=== PATIENT | female | born 1980 | race Caucasian/White ===

== ENCOUNTER 2016-05-15 11:04 | Outpatient (CLI) | payer MEDICAID ==
[2016-05-15 11:21] VITALS: BP 110/61; PULSE 110; RESP 18; TEMP 97.5
== END 2016-05-15 12:40 | disposition home or self-care (01) ==
LOC: FBPOP 11:04
PROVIDERS: ATTEND Obstetrics & Gynecology
DX: O62.2 Other uterine inertia (principal); Z3A.38 38 weeks gestation of pregnancy
CPT/HCPCS: 59025; 99213

== ENCOUNTER 2016-05-18 06:15 | Observation (INO) | payer MEDICAID ==
[2016-05-18] MEDS ORDERED: OXYTOCIN 10 UNIT/ML 1 ML VIAL IM PRN (06:57)
[2016-05-18] MEDS ORDERED: LIDOCAINE 1% (PF) 10 MG/ML (30 ML SDV) SQ PRN (06:57)
[2016-05-18] MEDS ORDERED: METHYLERGONOVINE 0.2 MG/ML 1 ML AMP IM PRN (06:57)
[2016-05-18] MEDS ORDERED: PENICILLIN G POTASSIUM 5,000,000 UNIT in DEXTROSE 5% IN WATER 100 ML IV STA ×2 (06:57)
[2016-05-18] MEDS ORDERED: TERBUTALINE 1 MG/ML VIAL SQ PRN (06:57)
[2016-05-18] MEDS ORDERED: CARBOPROST TROMETHAMINE 250 MCG/ML 1 ML AMP IM PRN (06:57)
[2016-05-18] MEDS ORDERED: LACTATED RINGERS 1,000 ML IV SCH (07:00)
[2016-05-18] MEDS ORDERED: OXYTOCIN 30 UNITS/500 ML NS 30 UNIT in SALINE 1 500ML.BAG IV SCH (07:00)
[2016-05-18 07:08] LABS: Basophils # (A) 0.1 k/uL (0-0.2); Basophils % (A) 1 %; CH 27.5; CHCM 34.1; Eosinophils # (A) 0.2 k/uL (0-0.7); Eosinophils % (A) 2 %; HCT 31.8 % (34.0-46.0); HDW 3.63; HGB 10.8 gm/dL (11.4-16.0); Luc % (Auto) 2; Lymphocytes # (A) 1.7 k/uL (1.0-4.8); Lymphocytes % (A) 17 %; MCH 27.7 pg (25.0-35.0); MCHC 34.1 g/dL (31.0-37.0); MCV 81.2 fL (80.0-100.0); Mean Platelet Volume 6.7; Monocytes # (A) 0.4 k/uL (0-1.0); Monocytes % (A) 4 %; Neutrophils # (A) 7.5 k/uL (1.3-7.7); Neutrophils % (A) 75 %; Poikilocytosis Slight; RBC 3.91 m/uL (3.80-5.40); RDW 15.3 % (11.5-15.5); WBC (Perox) 10.17
[2016-05-18 07:28] VITALS: BP 129/63; PULSE 110; RESP 18; TEMP 96.2; BMI 47.9
[2016-05-18] MEDS ORDERED: BUTORPHANOL 1 MG/ML 1 ML VIAL IV PRN (08:13)
--- NOTE | 2016-05-18 08:22 | P.HPOB ---
History of Present Illness H&P Date: 05/18/16 Chief Complaint: 39-2/7 weeks, elective induction The patient is a 36-year-old 4 para 2012 admitted at 39-2/7 weeks as established by an 18 week ultrasound. She is admitted for elective induction of labor with a history of macrosomic infants and a BMI of greater than 50. This infant is thought also to be macrosomic based upon the most recent ultrasound. She does fall into the category of advanced maternal age and declined testing. Her has otherwise been uncomplicated though she is group B strep positive and requires treatment in labor. Check of her cervix this morning demonstrates her cervix to be 3 cm dilated, 40% effaced, the vertex in presentation but extraordinarily high at this point. Confirmation of presentation was made with bedside ultrasound. Obstetrical history 4 para 2012 with 2 previous term vaginal deliveries of infants in the 9 pound range. Current statistics are listed in history of present illness. EDC of 05/23/2016 was established by an 18 week ultrasound. Laboratory workup demonstrates a blood type of O+ with a positive antibody that was too weak to identify. Rubella status is immune. The remainder of the laboratory work was within normal limits. Early Glucola was within normal limits well second trimester Glucola was elevated and followed by a normal three-hour glucose tolerance test. Group B strep status is positive. Gynecologic history is unremarkable with no history of any infections to include STDs. Review of Systems Review of systems is confined to history of present illness. Past Medical History Past Medical History: GERD/Reflux Additional Past Medical History / Comment(s): Hiatal hernia History of Any Multi-Drug Resistant Organisms: None Reported Past Surgical History: No Surgical Hx Reported Past Anesthesia/Blood Transfusion Reactions: No Reported Reaction Past Psychological History: No Psychological Hx Reported Smoking Status: Never smoker Past Alcohol Use History: None Reported Past Drug Use History: None Reported - Past Family History Mother Family Medical History: No Reported History Medications and Allergies Home Medications Medication Instructions Recorded Confirmed Type Pnv with Ca,No.72/Iron/FA 1 tab PO DAILY 04/09/16 05/15/16 History [ Plus Tablet] Allergies Allergy/AdvReac Type Severity Reaction Status Date / Time No Known Allergies Allergy Verified 05/18/16 06:55 Exam - Vital Signs Vital signs: Vital Signs Temp Pulse Resp BP Pulse Ox 05/18/16 07:23 96.2 F L 110 H 18 129/63 98 Intake and Output 05/17/16 05/18/16 05/18/16 22:59 06:59 14:59 Other: Weight 142.882 kg 142.882 kg Patient Weight 05/19/16 06:59 Weight 142.882 kg In general, this is a morbidly obese white female in no acute distress. Her heart has a regular rhythm and rate without murmur. Her lungs are clear to auscultation bilaterally in all skinner. Her abdomen is gravid, nondistended, has normal active bowel sounds, is soft, nontender, and without any palpable masses aside from uterine fundus. Her extremities are without any cyanosis, clubbing, or significant edema and are nontender to palpation bilaterally. Digital cervical examination inserted to surgery 3 cm dilated, 40% effaced, the vertex in presentation at -3-4 station. Amniotic membranes were left intact at this time. Results Result Diagrams: 05/18/16 07:00 Abnormal Lab Results - Last 24 Hours (Table) 05/18/16 Range/Units 07:00 Hgb 10.8 L (11.4-16.0) gm/dL Hct 31.8 L (34.0-46.0) % Assessment and Plan (1) Term Status: Acute (2) macrosomia Status: Acute (3) Advanced maternal age (AMA) in Status: Acute (4) Group B streptococcal infection during Status: Acute Plan: The patient is admitted for elective induction of labor. As her presenting part is very high in the pelvis, Pitocin augmentation will be started along with penicillin prophylaxis for group B strep. When the head is low enough to safely effect artificial rupture of membranes, this will be carried out. She will continue to have close maternal and surveillance and expectant management will be practiced. She is a good candidate for either IV or epidural analgesia, whichever she may choose.
[2016-05-18] MEDS ORDERED: PENICILLIN G POTASSIUM 2,500,000 UNIT in DEXTROSE 5% IN WATER 100 ML IV SCH ×2 (11:00)
--- NOTE | 2016-05-26 10:55 | P.DS ---
Providers Date of admission: 05/18/16 06:41 Expected date of discharge: 05/18/16 Attending physician: Ramiro Veliz Primary care physician: Stated None - Discharge Diagnosis(es) (1) Term Status: Acute (2) macrosomia Status: Acute (3) Advanced maternal age (AMA) in Status: Acute (4) Group B streptococcal infection during Status: Acute Hospital Course: The patient is a 36-year-old 4 para 2011 admitted at 39-2/7 weeks by good dating parameters perches admitted for elective induction of labor with a history of previous macrosomic infants and maternal morbid obesity. This infant was also thought to be macrosomic based upon both Jett maneuvers and the ultrasound. She additionally [place] the category of advanced maternal age and declined testing. She is also known to be group B strep positive. She was admitted and had Pitocin augmentation started as well as antibody prophylaxis for group B strep. Cervical examination demonstrated her cervix to be approximately 37 m dilated and 40-50% effaced but the presenting part was not palpable in the pelvis. Bedside ultrasound confirms vertex presentation but the station was too high to safely carry out artificial rupture. As result she had Pitocin augmentation continued through the morning and early afternoon with no significant change in her cervix and no descent of the head. As result, and given that the induction was entirely elective, we had a discussion regarding options and agreed to call the induction process and discharge her to home. She was discharged home to follow-up in one week in the office for recheck and to call for any other problems she may encounter. She understood her instructions and agrees to follow up as noted above. Discharge medications included only continue vitamins. Procedures: #1. Pitocin augmentation #2. Antibiotic prophylaxis Patient Condition at Discharge: Good Plan - Discharge Summary Discharge Medication List Pnv with Ca,No.72/Iron/FA [ Plus Tablet] 1 tab PO DAILY 04/09/16 [ History] Ferrous Sulfate [Feosol] 1 tab PO DAILY 05/25/16 [History] Follow up Appointment(s)/Referral(s): Ramiro Veliz MD [STAFF PHYSICIAN] - 1 Week
== END 2016-05-18 14:40 ==
LOC: INTOOBSV 06:41 → 4FBP 06:41
PROVIDERS: ADMIT Obstetrics & Gynecology; ATTEND Obstetrics & Gynecology
DX: O75.89 Other specified complications of labor and delivery (principal); O09.523 Supervision of elderly multigravida, third trimester; O36.63X0 Maternal care for excessive fetal growth, third trimester, not applicable or unspecified; O98.813 Other maternal infectious and parasitic diseases complicating pregnancy, third trimester; O99.213 Obesity complicating pregnancy, third trimester; Z3A.39 39 weeks gestation of pregnancy; B95.1 Streptococcus, group B, as the cause of diseases classified elsewhere; E66.01 Morbid (severe) obesity due to excess calories
CPT/HCPCS: 85025; G0379; G0378; J2540; J0595; J2590; 96365; 96366; 96375

== ENCOUNTER 2016-05-25 06:30 | Inpatient (IN) | payer MEDICAID ==
[2016-05-25] MEDS ORDERED: CARBOPROST TROMETHAMINE 250 MCG/ML 1 ML AMP IM PRN (06:46)
[2016-05-25] MEDS ORDERED: TERBUTALINE 1 MG/ML VIAL SQ PRN (06:46)
[2016-05-25] MEDS ORDERED: METHYLERGONOVINE 0.2 MG/ML 1 ML AMP IM PRN (06:46)
[2016-05-25] MEDS ORDERED: OXYTOCIN 10 UNIT/ML 1 ML VIAL IM PRN (06:46)
[2016-05-25] MEDS ORDERED: PENICILLIN G POTASSIUM 5,000,000 UNIT in DEXTROSE 5% IN WATER 100 ML IV STA ×2 (06:46)
[2016-05-25] MEDS ORDERED: LIDOCAINE 1% (PF) 10 MG/ML (30 ML SDV) SQ PRN (06:46)
[2016-05-25] MEDS ORDERED: OXYTOCIN 30 UNITS/500 ML NS 30 UNIT in SALINE 1 500ML.BAG IV SCH (07:00)
[2016-05-25 07:01] VITALS: BMI 48.4
[2016-05-25] MEDS: LACTATED RINGERS 1,000 ML IV SCH ×5 (07:02→21:51)
[2016-05-25 07:14] LABS: Basophils % (A) 0 %; CH 27.5; CHCM 34.1; Eosinophils # (A) 0.3 k/uL (0-0.7); Eosinophils % (A) 3 %; HCT 30.9 % (34.0-46.0); HDW 3.59; HGB 10.4 gm/dL (11.4-16.0); Luc # (Auto) 0.13; Luc % (Auto) 2; Lymphocytes # (A) 1.5 k/uL (1.0-4.8); Lymphocytes % (A) 19 %; MCH 27.4 pg (25.0-35.0); MCHC 33.7 g/dL (31.0-37.0); MCV 81.2 fL (80.0-100.0); Monocytes # (A) 0.4 k/uL (0-1.0); Monocytes % (A) 5 %; Neutrophils # (A) 5.9 k/uL (1.3-7.7); Neutrophils % (A) 72 %; Poikilocytosis Slight; RBC 3.81 m/uL (3.80-5.40); RDW 15.7 % (11.5-15.5); WBC 8.2 k/uL (3.8-10.6); WBC (Perox) 8.78
[2016-05-25] MEDS ORDERED: CITRIC ACID-SODIUM CITRATE 15 ML CUP PO ONE (10:46)
[2016-05-25] MEDS ORDERED: ceFAZolin 3 GM in SODIUM CHLORIDE 0.9% 100 ML IVPB ONE (10:46)
[2016-05-25] MEDS ORDERED: PENICILLIN G POTASSIUM 2,500,000 UNIT in DEXTROSE 5% IN WATER 100 ML IV SCH ×2 (11:00)
[2016-05-25] MEDS ORDERED: PHENYLEPHRINE-0.9% NACL SYG 1 MG/10 ML SYRINGE ONE (12:14)
[2016-05-25] MEDS ORDERED: OXYTOCIN 10 UNIT/ML 1 ML VIAL IM ONE (12:14)
[2016-05-25] MEDS ORDERED: KETOROLAC 30 MG/ML 1 ML VIAL ONE (12:14)
[2016-05-25] MEDS ORDERED: ONDANSETRON 4 MG/2 ML VIAL ONE (12:14)
[2016-05-25] MEDS ORDERED: MORPHINE SULFATE (PF) 0.3 MG/0.3 ML SYR ONE (12:14)
[2016-05-25] MEDS ORDERED: NALBUPHINE 10 MG/ML AMPUL ONE (12:14)
--- NOTE | 2016-05-25 13:17 | P.HPOB ---
History of Present Illness H&P Date: 05/25/16 Chief Complaint: 40-2/7 weeks, induction of labor The patient is a 36-year-old 4 para 2011 admitted at 40-2/7 weeks as established by an 18 week ultrasound. She is admitted for second attempt at induction of labor. She was admitted last week for an elective attempted induction at which time the head was never felt within the pelvis and Pitocin for two thirds of the day failed to cause engagement. As result, she was discharged home to return to the office for further discussion. After further discussion, the patient requested another attempt at induction of labor. Her cervix remained favorable from the dilation standpoint other the station was still very high. Bedside ultrasound on several occasions confirmed the head as the presenting part. She does have a history of 2 previous macrosomic deliveries with the last one of leading to some degree of shoulder dystocia. Her was otherwise uncomplicated though she is morbidly obese. Group B strep status is positive. Obstetrical history 4 para 2011 with 2 term vaginal deliveries, both macrosomic in nature and the second complicated by mild shoulder dystocia. Current statistics are listed in history of present illness. EDC of 05/23/2016 was established by an 18 week ultrasound. Laboratory workup demonstrates a blood type of O+ with a positive antibody screen which was too weak to identify. Rubella status is immune. The remainder of the laboratory workup was within normal limits. Early Glucola was within normal limits. Second trimester Glucola was elevated but followed by a normal glucose tolerance test. Group B strep status is positive. Gynecologic history is unremarkable with no history of any infections to include STDs. Review of Systems Review of systems is confined to history of present illness. Past Medical History Past Medical History: GERD/Reflux Additional Past Medical History / Comment(s): Hiatal hernia History of Any Multi-Drug Resistant Organisms: None Reported Past Surgical History: No Surgical Hx Reported Past Anesthesia/Blood Transfusion Reactions: No Reported Reaction Past Psychological History: No Psychological Hx Reported Smoking Status: Never smoker Past Alcohol Use History: None Reported Past Drug Use History: None Reported - Past Family History Mother Family Medical History: No Reported History Medications and Allergies Home Medications Medication Instructions Recorded Confirmed Type Pnv with Ca,No.72/Iron/FA 1 tab PO DAILY 04/09/16 05/25/16 History [ Plus Tablet] Ferrous Sulfate [Feosol] 1 tab PO DAILY 05/25/16 05/25/16 History Allergies Allergy/AdvReac Type Severity Reaction Status Date / Time No Known Allergies Allergy Verified 05/25/16 06:44 Exam - Vital Signs Vital signs: Vital Signs Temp Pulse Resp BP 05/25/16 06:40 97.4 F L 94 16 128/66 Intake and Output 05/24/16 05/25/16 05/25/16 22:59 06:59 14:59 Intake Total 1100 Balance 1100 Intake: Intake, IV Titration 1100 Amount Lactated Ringers 1,000 ml 1000 @ 125 mls/hr IV .Q8H MELITON Rx#:[id number] Penicillin G Potassium 5, 100 000,000 unit In Dextrose 5% in Water 100 ml @ 100 mls/hr IV ONCE STA Rx#: [id number] Other: Weight 144.696 kg In general, this is a morbidly obese white female in no acute distress. Her heart has a regular rhythm and rate without murmur. Her lungs are clear to auscultation bilaterally in all skinner. Her abdomen is obese, nondistended, gravid, has normal active bowel sounds, is soft, nontender, and without any palpable masses aside from uterine fundus. Her extremities are without any cyanosis, clubbing, or significant edema and are nontender to palpation bilaterally. Digital cervical examination demonstrates her cervix to be 3 cm dilated, approximately 50-60% effaced, with no presenting part palpable in the pelvis. Bedside ultrasound confirms the head in the central left lower quadrant with a lie somewhat oblique. Artificial rupture of membranes is not carried out as it would represent significant danger for cord prolapse. Results Result Diagrams: 05/25/16 06:55 Abnormal Lab Results - Last 24 Hours (Table) 05/25/16 Range/Units 06:55 Hgb 10.4 L (11.4-16.0) gm/dL Hct 30.9 L (34.0-46.0) % RDW 15.7 H (11.5-15.5) % Assessment and Plan (1) Term Status: Acute (2) Group B streptococcal infection during Status: Acute Plan: The patient has been admitted for induction of labor. As noted above, the presenting part is too high to allow for rupture of membranes. Ultrasound does confirm vertex as the presenting part though the lie is somewhat oblique. As result, we will proceed with Pitocin to see if we can bring the head into the pelvis. Should no descent occur, we have discussed the possibility of proceeding to section for failure of the head to engage in the pelvis. I do suspect significant macrosomia is present as well. Given her group B strep status, penicillin prophylaxis has been started. She is a good candidate for epidural or IV analgesia, whichever she may choose. She will continue to have close maternal and surveillance and expectant management will be practiced.
[2016-05-25] MEDS ORDERED: diphenhydrAMINE 50 MG CAP PO PRN (13:23)
[2016-05-25] MEDS ORDERED: METOCLOPRAMIDE 5 MG/ML 2 ML VIAL IVP PRN (13:23)
[2016-05-25] MEDS ORDERED: ZOLPIDEM 5 MG TAB PO PRN (13:23)
[2016-05-25] MEDS ORDERED: diphenhydrAMINE 25 MG CAP PO PRN (13:23)
[2016-05-25] MEDS ORDERED: diphenhydrAMINE 50 MG/ML 1 ML VIAL IVP PRN ×2 (13:23)
[2016-05-25] MEDS ORDERED: Acetaminophen-Codeine 300-30mg TAB PO PRN (13:23)
[2016-05-25] MEDS ORDERED: SIMETHICONE 80 MG CHEWABLE PO PRN (13:23)
[2016-05-25] MEDS ORDERED: ACETAMINOPHEN TAB 325 MG TAB PO PRN (13:23)
--- NOTE | 2016-05-25 13:23 | P.OP ---
Date of Procedure: 05/25/16 Preoperative Diagnosis: #1. 40-2/7 weeks intrauterine #2. Suspected macrosomia #3. Failure of engagement in the pelvis Postoperative Diagnosis: Same Procedure(s) Performed: #1. Primary low-transverse section Anesthesia: spinal Surgeon: Ramiro Veliz Box Blank Machine Operator #1: Sinai Bruno Estimated Blood Loss (ml): 500 IV fluids (ml): 1,100 Urine output (ml): 100 Pathology: other (Placenta) Condition: stable Disposition: floor Operative Findings: The patient was taken the operating room where she was delivered of a viable 10 lbs. 4 oz. baby boy with Apgars of 8 at 1 minute and 9 at 5 minutes delivered in the left occiput transverse position. The placenta was delivered manually, intact, and grossly normal with a grossly normal three-vessel cord. The uterus , tubes, and ovaries were entirely normal to inspection. Description of Procedure: The patient was prepped and draped in usual fashion after spinal anesthesia was administered by the anesthesiologist. A Pfannenstiel incision was made and extended into the abdominal cavity with minimal difficulty. The Anastacia self- retaining wound retractor was placed into the wound for exposure. The bladder was distal to the site of uterine incision and was left in place. A 2 cm incision was made in the transverse plane of the lower uterine segment to enter the uterus at which time clear fluid was noted and in copious amounts. The incision was extended in both directions using the bandage scissors as well as bluntly. The head was encountered in the pelvis and delivered up and through the incision and the nose and mouth were thoroughly suctioned. Remainder of the was delivered onto the field where the cord was doubly clamped, cut, and the infant passed for resuscitative measures with weight and Apgars as noted above. A segment of cord was then doubly clamped, cut, and set aside should cord gases become necessary. The placenta was delivered manually and intact as noted above. The uterus was exteriorized and the interior cavity of the uterus swept of any remaining placental or membranous fragments. The margins of the incision were grasped with Garrido clamps and the incision closed. The first layer of closure was a running locking stitch of 0 chromic catgut from one angle to the other. This was followed by a running imbricating stitch of 0 chromic catgut from one angle to the other. Hemostasis appeared to be excellent. The posterior cul-de-sac was suctioned using a guard and the uterine and ovarian findings are normal as noted above. The uterus was replaced within the abdominal cavity and the gutters swept of any remaining blood, fluid, or clot. The incision was reexamined and small points of bleeding made hemostatic with the Bovie. One larger point of bleeding at the left angle was made hemostatic with a [id number]-rclit stitch of 0 chromic catgut. Once hemostasis was adequate, the parietal peritoneum was loosely reapproximated following removal of the Anastacia retractor. The layer of muscles were examined and found to be hemostatic. The fascia was closed with 2 running stitches of 0 Vicryl proceeding from the lateral margins to the midpoint. The subcutaneous tissues were irrigated, made hemostatic with the Bovie, and reapproximated with a running stitch of 30 plain catgut. The skin was reapproximated with a running subcuticular stitch of 4-0 Vicryl followed by half -inch Steri-Strips placed with Mastisol. Estimated blood loss for the case was approximate 500 mL. There are no complications. All sponge, instrument, and needle counts were correct. Both mother and are resting comfortably in recovery of the infant is being observed for possible transitional breathing.
[2016-05-25] MEDS: OXYTOCIN 30 UNITS/500 ML NS 30 UNIT in SALINE 1 500ML.BAG IV SCH ×3 (13:54→21:51)
[2016-05-25] MEDS: SENNOSIDES-DOCUSATE SODIUM 1 EACH TAB PO SCH (21:50)
[2016-05-25] MEDS: KETOROLAC 30 MG/ML 1 ML VIAL IVP PRN (23:00)
[2016-05-26] MEDS: KETOROLAC 30 MG/ML 1 ML VIAL IVP PRN (07:24)
[2016-05-26] MEDS: SENNOSIDES-DOCUSATE SODIUM 1 EACH TAB PO SCH ×2 (07:24→19:39)
[2016-05-26 08:04] LABS: Anisocytosis Slight; Basophils % (A) 0 %; CH 27.7; Eosinophils # (A) 0.1 k/uL (0-0.7); Eosinophils % (A) 1 %; HCT 29.1 % (34.0-46.0); HDW 3.53; HGB 9.6 gm/dL (11.4-16.0); Luc # (Auto) 0.12; Luc % (Auto) 1; Lymphocytes % (A) 10 %; MCH 27.1 pg (25.0-35.0); Mean Platelet Volume 7.4; Monocytes # (A) 0.5 k/uL (0-1.0); Monocytes % (A) 5 %; Neutrophils # (A) 8.3 k/uL (1.3-7.7); Neutrophils % (A) 83 %; Poikilocytosis Slight; RBC 3.55 m/uL (3.80-5.40); WBC 10.1 k/uL (3.8-10.6); WBC (Perox) 11.05
--- NOTE | 2016-05-26 10:31 | P.PNOBGPC ---
Subjective - Subjective Patient reports: Reports appetite normal, Reports voiding normally, Reports pain well controlled, Reports ambulating normally : doing well (Receiving 48 hours of prophylactic antibiotics and still requiring oxygen supplementation.) Objective - Vital Signs Latest vital signs: Vital Signs Temp Pulse Resp BP Pulse Ox 05/26/16 07:50 97.6 F 78 18 124/72 05/26/16 03:30 98.1 F 75 18 115/60 100 05/25/16 23:24 97.8 F 82 16 98/54 97 05/25/16 20:00 98.2 F 82 16 107/73 98 05/25/16 19:15 89 16 116/71 97 05/25/16 16:00 97.5 F L 81 16 110/73 99 05/25/16 15:11 70 16 113/73 98 05/25/16 14:41 63 16 117/65 99 05/25/16 14:11 96.9 F L 75 16 109/66 99 05/25/16 13:56 67 16 104/64 98 05/25/16 13:41 58 L 16 110/65 98 05/25/16 13:37 67 16 110/65 99 05/25/16 13:26 75 16 109/63 99 05/25/16 13:11 96.7 F L 76 16 106/59 98 Intake and Output 05/25/16 05/26/16 05/26/16 22:59 06:59 14:59 Output Total 400 300 300 Balance -400 -300 -300 Output: Urine 400 300 300 Uretheral (Randhawa) 300 Other: Voiding Method Incontinent # Voids 0 1 # Bowel Movements 0 - Exam Lungs: bilateral: normal Chest: Normal S1, Normal S2 Extremities: Present: normal Abdomen: Present: normal appearance, soft. Absent: distention, tenderness Incision: Present: normal, dry, intact Uterus: Present: normal, firm (Tonic and appropriately tender fundus consistent with approximate 20 week size) - Labs Labs: Abnormal Lab Results - Last 24 Hours (Table) 05/26/16 Range/Units 07:41 RBC 3.55 L (3.80-5.40) m/uL Hgb 9.6 L (11.4-16.0) gm/dL Hct 29.1 L (34.0-46.0) % RDW 16.0 H (11.5-15.5) % Neutrophils # 8.3 H (1.3-7.7) k/uL Assessment and Plan (1) Term Current Visit: Yes Status: Acute Code(s): Z34.80 - ENCOUNTER FOR SUPRVSN OF NORMAL , UNSP TRIMESTER SNOMED Code(s): 31916181 (2) Group B streptococcal infection during Current Visit: Yes Status: Acute Code(s): O98.819 - OTH MATERNAL INFEC/ PARASTC DISEASES COMP PREG, UNSP TRI; B95.1 - STREPTOCOCCUS, GROUP B, [facility] Code(s): 356609225 (3) S/P section Narrative/Plan: Continue routine postoperative care. I would anticipate discharge home tomorrow assuming that the is released. I have encouraged her to continue to ambulate in the halls routinely. Current Visit: Yes Status: Acute Code(s): Z98.891 - HISTORY OF UTERINE SCAR FROM PREVIOUS SURGERY SNOMED Code(s): 679684340
[2016-05-26] MEDS: IBUPROFEN 600 MG TAB PO PRN ×2 (13:46→19:39)
[2016-05-26] MEDS: Acetaminophen-Codeine 300-30mg TAB PO PRN ×2 (16:23→23:56)
--- NOTE | 2016-05-26 19:00 | P.PN ---
Progress Note - Text Postoperative day 1 status post section under spinal anesthesia, and intrathecal morphine given for postoperative analgesia, patient doing well, there is no anesthesia related complications, further management as per her primary team
[2016-05-27] MEDS: IBUPROFEN 600 MG TAB PO PRN ×3 (02:52→20:31)
[2016-05-27] MEDS: SENNOSIDES-DOCUSATE SODIUM 1 EACH TAB PO SCH ×2 (08:47→20:31)
[2016-05-27] MEDS: Acetaminophen-Codeine 300-30mg TAB PO PRN ×3 (08:48→23:33)
--- NOTE | 2016-05-27 09:35 | P.PNOBGPC ---
Subjective - Subjective Patient reports: Reports appetite normal, Reports voiding normally, Reports pain well controlled, Reports ambulating normally [place]: doing well, in NICU (Continues to receive antibiotics prophylactically. ) Objective - Vital Signs Latest vital signs: Vital Signs Temp Pulse Resp BP Pulse Ox 05/27/16 08:00 99.2 F 108 H 20 111/71 97 05/27/16 00:00 98.0 F 93 16 121/73 05/26/16 16:00 97.9 F 82 18 103/55 - Exam Extremities: Present: normal Abdomen: Present: normal appearance, soft. Absent: distention, tenderness Incision: Present: normal, dry, intact Uterus: Present: normal, firm Assessment and Plan (1) Term Current Visit: Yes Status: Acute Code(s): Z34.80 - ENCOUNTER FOR SUPRVSN OF NORMAL , UNSP TRIMESTER SNOMED Code(s): 74217976 (2) Group B streptococcal infection during Current Visit: Yes Status: Acute Code(s): O98.819 - OTH MATERNAL INFEC/ PARASTC DISEASES COMP PREG, UNSP TRI; B95.1 - STREPTOCOCCUS, GROUP B, CAUSING DISEASES [facility] SNOMED Code(s): 823441501 (3) S/P section Narrative/Plan: Continue routine postoperative care. The remains and special care nursery for ongoing treatment. The patient will likely remain as long as her infant or until the time that she must be discharged from an insurance standpoint. I have encouraged her to continue to ambulate in the halls routinely and to call for any other problems. Current Visit: Yes Status: Acute Code(s): Z98.891 - HISTORY OF UTERINE SCAR FROM PREVIOUS SURGERY SNOMED Code(s): 946569163
[2016-05-28] MEDS: IBUPROFEN 600 MG TAB PO PRN ×3 (02:26→15:27)
[2016-05-28] MEDS: Acetaminophen-Codeine 300-30mg TAB PO PRN ×2 (06:22→13:26)
[2016-05-28] MEDS: SENNOSIDES-DOCUSATE SODIUM 1 EACH TAB PO SCH (08:42)
[2016-05-28 08:48] VITALS: BP 121/65; PULSE 86; RESP 20; TEMP 98
--- NOTE | 2016-05-28 09:01 | P.DS ---
Providers Date of admission: 05/25/16 06:38 Expected date of discharge: 05/28/16 Attending physician: Ramiro Veliz Primary care physician: Stated None - Discharge Diagnosis(es) (1) Term Current Visit: Yes Status: Acute (2) Group B streptococcal infection during Current Visit: Yes Status: Acute (3) S/P section Current Visit: Yes Status: Acute Hospital Course: The patient is a 36-year-old 4 para 2011 admitted at 40-2/7 weeks by good dating parameters. She is admitted for induction of labor, a second attempt, after having had a failed induction attempt at 39+ weeks. Though her cervix has been quite dilated the head has been very high in presentation making rupture of membranes unsafe. She does carry a history of previous macrosomic infants with the second one experiencing a mild shoulder dystocia. Group B strep status is negative. On labor and delivery, she again had Pitocin augmentation started as well as antibody prophylaxis for group B strep. Digital cervical examination demonstrated her cervix to be 3 cm dilated with 50- 60% effacement but the presenting part not palpable in the pelvis. Bedside ultrasound again confirmed that the head was high and in the left lower quadrant. Attempts to use Pitocin to bring the head into the pelvis failed. As result of this second failure, we discussed options for proceeding and agreed to proceed to primary low transverse section. She was taken to the operating room where she was delivered of a viable 10 lbs. 4 oz. baby boy with Apgars of 8 at 1 minute and 9 at 5 minutes. The patient's course was entirely unremarkable with vital signs remaining stable and her temperature was afebrile throughout. She was deemed stable for discharge by post operative day #3 and was discharged home to follow-up in the office in 2 weeks for an incision check and 6 weeks routinely. The infant did spend those 3 days in the special care nursery for ongoing prophylactic antibiotic therapy. Discharge instructions included calling for any significantly increased bleeding or foul-smelling lochia, significantly increased fever abdominal pain, perineal complaints, breast complaints, incisional complaints, or anything else that concerned her. She was additionally instructed to have nothing in the vagina for at least 6 weeks time to include intercourse and to abstain from any heavy lifting over the same period of time. She was lastly instructed to do no driving until off of all pain medications or 2 weeks' time, whichever came first. She understood her instructions and agrees to follow up as noted above. Discharge medications included a prescription for Tylenol 3, 1-2 by mouth every 6 hours when necessary pain, #30 dispensed with no refills. She was additionally to use [id number] analgesic pain medications between. She has chosen to bottle feed and therefore does not necessarily require continued vitamins though they were encouraged. Maternal blood type is O+ and rubella status is immune. Discharge hemoglobin and hematocrit were 9.6 and 29.1 respectively. Procedures: #1. Pitocin augmentation #2. Antibody prophylaxis #3. Primary low-transverse section Patient Condition at Discharge: Good Plan - Discharge Summary New Discharge Prescriptions: Acetaminophen-Codeine 300-30mg [Tylenol #3] 2 tab PO Q6H PRN #30 tablet PRN Reason: Pain Discharge Medication List Pnv with Ca,No.72/Iron/FA [ Plus Tablet] 1 tab PO DAILY 04/09/16 [ History] Ferrous Sulfate [Feosol] 1 tab PO DAILY 05/25/16 [History] Acetaminophen-Codeine 300-30mg [Tylenol #3] 2 tab PO Q6H PRN #30 tablet [Rx] Follow up Appointment(s)/Referral(s): Ramiro Veliz MD [STAFF PHYSICIAN] - 2 Weeks Discharge Disposition: HOME SELF-CARE
== END 2016-05-28 16:40 | disposition home or self-care (01) | DRG 765 ==
LOC: 4FBP 06:38
PROVIDERS: ADMIT Obstetrics & Gynecology; ATTEND Obstetrics & Gynecology
PROC: 10D00Z1 Extraction of Products of Conception, Low, Open Approach (ICD-10-PCS; principal; 2016-05-25 06:30)
PROC: 3E033VJ Introduction of Other Hormone into Peripheral Vein, Percutaneous Approach (ICD-10-PCS; principal; 2016-05-25 06:30)
DX: O64.8XX0 Obstructed labor due to other malposition and malpresentation, not applicable or unspecified (principal); Z68.42 Body mass index [BMI] 45.0-49.9, adult; O99.824 Streptococcus B carrier state complicating childbirth; O99.214 Obesity complicating childbirth; E66.01 Morbid (severe) obesity due to excess calories; O61.0 Failed medical induction of labor; O36.63X0 Maternal care for excessive fetal growth, third trimester, not applicable or unspecified; Z37.0 Single live birth; Z3A.40 40 weeks gestation of pregnancy; O99.62 Diseases of the digestive system complicating childbirth; K21.9 Gastro-esophageal reflux disease without esophagitis; K44.9 Diaphragmatic hernia without obstruction or gangrene; Z79.899 Other long term (current) drug therapy
CPT/HCPCS: 85025; 88307

== ENCOUNTER 2021-02-25 21:33 | Inpatient (IN) | payer BC, MEDICAID ==
[2021-02-25] MEDS ORDERED: ALBUTEROL HFA INHALER INHALATION STA (21:50)
--- NOTE | 2021-02-25 22:24 | ED ---
URI HPI - General Chief Complaint: Upper Respiratory Infection Stated Complaint: Covid+, SOB,Fever Time Seen by Provider: 02/25/21 21:49 Source: patient Mode of arrival: ambulatory Limitations: no limitations - History of Present Illness MD Complaint: fever, cough Onset/Timin -: days(s) Severity: moderate Consistency: constant Improves With: nothing Worsens With: nothing Associated Symptoms: fever, chills, myalgias, shortness of breath Treatments Prior to Arrival: Acetaminophen - Related Data Home Medications Medication Instructions Recorded Confirmed Pnv,Calcium 72/Iron/Folic Acid 1 tab PO DAILY 04/09/16 05/25/16 [ Plus Tablet] Ferrous Sulfate [Feosol] 1 tab PO DAILY 05/25/16 05/25/16 Previous Rx's Medication Instructions Recorded Acetaminophen-Codeine 300-30mg 2 tab PO Q6H PRN #30 tablet 05/28/16 [Tylenol #3] Allergies Allergy/AdvReac Type Severity Reaction Status Date / Time No Known Allergies Allergy Verified 05/25/16 06:44 Review of Systems ROS Statement: Those systems with pertinent positive or pertinent negative responses have been documented in the HPI. ROS Other: All systems not noted in ROS Statement are negative. Constitutional: Reports: fever, chills. Denies: weakness ENT: Denies: ear pain, throat pain Respiratory: Reports: cough, dyspnea. Denies: hemoptysis Cardiovascular: Denies: chest pain, palpitations, edema, syncope Gastrointestinal: Reports: diarrhea. Denies: abdominal pain, vomiting, con stipation, melena Genitourinary: Denies: dysuria, hematuria Musculoskeletal: Denies: back pain Skin: Denies: rash Neurological: Denies: headache, weakness Past Medical History Past Medical History: GERD/Reflux Additional Past Medical History / Comment(s): Hiatal hernia History of Any Multi-Drug Resistant Organisms: None Reported Past Surgical History: No Surgical Hx Reported Past Anesthesia/Blood Transfusion Reactions: No Reported Reaction Past Psychological History: No Psychological Hx Reported Past Alcohol Use History: None Reported Past Drug Use History: None Reported - Past Family History Mother Family Medical History: No Reported History General Exam Limitations: no limitations General appearance: alert, in no apparent distress Head exam: Present: atraumatic, normocephalic Eye exam: Present: normal appearance. Absent: scleral icterus, conjunctival injection ENT exam: Present: normal oropharynx Respiratory exam: Present: normal lung sounds bilaterally, rales. Absent: respiratory distress, wheezes, rhonchi, stridor Cardiovascular Exam: Present: regular rate, normal rhythm, normal heart sounds. Absent: systolic murmur, diastolic murmur, rubs, gallop GI/Abdominal exam: Present: soft. Absent: distended, tenderness, guarding, rebound, rigid, mass Extremities exam: Present: normal inspection, normal capillary refill. Absent: pedal edema, calf tenderness Back exam: Present: normal inspection. Absent: CVA tenderness (R), CVA tenderness (L) Neurological exam: Present: alert Skin exam: Present: warm, dry, intact, normal color. Absent: rash Course Vital Signs 02/25/21 21:39 Temperature 99.3 F Pulse Rate 111 H Respiratory 20 Rate Blood Pressure 139/79 O2 Sat by Pulse 92 L Oximetry Disposition Referrals: None,Stated [Primary Care Provider] - 1-2 days
[2021-02-25 22:35] LABS: Basophils % (A) 1 %; Eosinophils % (A) 0 %; HCT 39.6 % (34.0-46.0); HGB 13.8 gm/dL (11.4-16.0); Hyperchromasia Slight; Lymphocytes # (A) 0.9 k/uL (1.0-4.8); Lymphocytes % (A) 22 %; MCHC 34.9 g/dL (31.0-37.0); MCV 80.2 fL (80.0-100.0); Mean Platelet Volume 7.2; Monocytes # (A) 0.2 k/uL (0-1.0); Monocytes % (A) 4 %; Neutrophils # (A) 3.1 k/uL (1.3-7.7); Neutrophils % (A) 71 %; Platelet Count 176 k/uL (150-450); Poikilocytosis Slight; RBC 4.94 m/uL (3.80-5.40); RDW 14.2 % (11.5-15.5); WBC 4.3 k/uL (3.8-10.6)
[2021-02-25 22:43] LABS: Chloride 97 mmol/L (98-107)
[2021-02-25 22:48] LABS: ALT 41 U/L (4-34); AST 66 U/L (14-36); African American GFR (CKD) >90 (>60 ml/min/1.73 sqM); Alkaline Phosphatase 145 U/L (38-126); Anion Gap 12 mmol/L; Blood Urea Nitrogen 8 mg/dL (7-17); Calcium 9.1 mg/dL (8.4-10.2); Carbon Dioxide 24 mmol/L (22-30); Glucose 213 mg/dL (74-99); INR 0.9 (<1.2); LDH 703 U/L (313-618); Magnesium 1.9 mg/dL (1.6-2.3); Non-African American GFR(CKD) >90 (>60 ml/min/1.73 sqM); Partial Thromboplastin Time 26.2 sec (22.0-30.0); Potassium 3.4 mmol/L (3.5-5.1); Prothrombin Time 9.5 sec (9.0-12.0); Sodium 133 mmol/L (137-145); Total Bilirubin 0.7 mg/dL (0.2-1.3); Total Protein 7.1 g/dL (6.3-8.2)
--- NOTE | 2021-02-25 22:54 | XR ---
EXAMINATION TYPE: XR chest 1V portable DATE OF EXAM: 02/25/2021 COMPARISON: 10/08/2015 HISTORY: Chest pain TECHNIQUE: Single view FINDINGS: There is some interstitial patchy infiltrate in the left lung. Exam limited by patient's si ze. There is poor inspiration. There is probably some interstitial infiltrate right lung. IMPRESSION: New bilateral pulmonary interstitial infiltrates compared to old exam. Normal heart.
[2021-02-26 00:29] LABS: C Reactive Protein 15.5 mg/dL (<1.0)
--- NOTE | 2021-02-26 01:58 | CT ---
EXAMINATION TYPE: CT chest angio for PE DATE OF EXAM: 02/26/2021 COMPARISON: None HISTORY: elevated d-dimer CT DLP: 934.4 mGycm Automated exposure control for dose reduction was used. CONTRAST: Performed with IV Contrast, patient injected with 100 mL of Isovue 370. Images obtained from the thoracic inlet to the diaphragm with IV contrast Isovue 100 mL. There are 3- D post processed images. There is patchy groundglass interstitial infiltrate throughout the lungs. There is no pleural effusio n. Heart size is normal. There is no pericardial effusion. There are no hilar masses. There is no med iastinal adenopathy. Thoracic aorta is intact. There is no evidence of aneurysm or dissection. There is normal contrast opacification of the pulmonary arteries. There are no filling defects. Upper abdominal soft tissues are intact. Thoracic spine is intact. Sternum is intact. The ribs appear intact. IMPRESSION: No evidence of pulmonary embolism. Patchy bilateral interstitial pneumonia. No suspicious pulmonary mass. Normal heart.
[2021-02-26] MEDS ORDERED: ACETAMINOPHEN TAB 500 MG TAB PO PRN (02:59)
[2021-02-26] MEDS: SODIUM CHLORIDE 0.9% 1,000 ML IV SCH ×2 (03:07→20:58)
[2021-02-26] MEDS: ALBUTEROL HFA INHALER INHALATION SCH ×4 (07:23→19:32)
[2021-02-26] MEDS ORDERED: DEXAMETHASONE SOD PHOSPHATE 4 MG/ML 1 ML VIAL IV SCH (09:00)
[2021-02-26] MEDS: AZITHROMYCIN 500 MG TAB PO SCH (09:01)
[2021-02-26] MEDS: DEXAMETHASONE SOD PHOSPHATE 10 MG/ML 1 ML VIAL IV SCH (09:01)
[2021-02-26] MEDS: IBUPROFEN 400 MG TAB PO PRN (09:13)
[2021-02-26] MEDS ORDERED: ENOXAPARIN 30 MG/0.3 ML SYRINGE SQ SCH (11:00)
[2021-02-26 11:50] LABS: Glucose,Whole Blood 300 mg/dL (75-99)
[2021-02-26] MEDS: ASCORBIC ACID 500 MG TAB PO SCH (12:09)
[2021-02-26] MEDS: CHOLECALCIFEROL 25 MCG (1000 IU) TABLET PO SCH (12:09)
[2021-02-26] MEDS: INSULIN ASPART (NovoLOG) 100 UNIT/ML VIAL SQ SCH ×3 (12:09→20:58)
[2021-02-26] MEDS ORDERED: REMDESIVIR 200 MG in SODIUM CHLORIDE 0.9% 250 ML IVPB ONE (13:00)
--- NOTE | 2021-02-26 13:17 | P.CNPUL ---
History of Present Illness Consult date: 02/26/21 Requesting physician: Rene Gonzalez Reason for consult: dyspnea, cough, hypoxemia, pneumonia, abnormal CXR/CT Chief complaint: Shortness of breath. History of present illness: Pulmonary/critical care consultation dated 02/26/2021. 40-year-old female, who apparently began to get sick last Sunday/Sunday. She's been sick for about 6 days or so. The patient was tested for coronavirus, and turned out to be positive. The patient's complaints included shortness of breath, cough, fever, chills, muscle aches, and generally just not feeling well, which has progressed through the last few days. For that reason, she came in to be evaluated. She was seen in the emergency room on February 25. The patient's resting comfortably but, is requiring oxygen therapy. She is on 2-3 L, with saturations of about 92-93%. We thought she was a good candidate for REM. In addition, she should get Lovenox, Decadron, and vitamin C, D3, and zinc. White count 4.3, with a normal hemoglobin, hematocrit, and platelet count. D-dimer was 0.61. Sodium 133, potassium 3.4, chlorides 97, CO2 24, anion gap normal, BUN 8, with a creatinine 0.58. C-reactive protein is 15.5. LDH is 703. Chest x-ray showed new bilateral pulmonary infiltrates. CT angiogram was negative for PE. Diffuse bilateral infiltrates were seen. Other than a hiatal hernia, and occasional acid reflux disease, the patient is otherwise healthy. Review of Systems REVIEW OF SYSTEMS: CONSTITUTIONAL: Fever, chills, muscle aches, weakness. NEUROLOGIC: [ Negative.] HEENT: [ Negative.] CARDIAC: [Negative.] PULMONARY: Shortness of breath, cough, chest congestion. GI: [Negative.] : [Negative.] RHEUMATOLOGIC: [ Negative.] IMMUNOLOGIC: [ Negative.] ENDOCRINE: [Negative. ] DERMATOLOGIC: [Negative.] Past Medical History Past Medical History: GERD/Reflux Additional Past Medical History / Comment(s): Hiatal hernia History of Any Multi-Drug Resistant Organisms: None Reported Past Surgical History: Section Additional Past Surgical History / Comment(s): section in 2017. Past Anesthesia/Blood Transfusion Reactions: No Reported Reaction Past Psychological History: No Psychological Hx Reported Smoking Status: Never smoker Past Alcohol Use History: Occasional, Rare Past Drug Use History: None Reported - Past Family History Mother Family Medical History: No Reported History Additional Family Medical History / Comment(s): Hypothyroidism Father Family Medical History: Hyperlipidemia Medications and Allergies Home Medications Medication Instructions Recorded Confirmed Type Acetaminophen Tab [Tylenol Tab] 1,000 mg PO Q6HR PRN 02/25/21 02/25/21 History Ibuprofen [Motrin Ib] 800 mg PO Q8H PRN 02/25/21 02/25/21 History Allergies Allergy/AdvReac Type Severity Reaction Status Date / Time No Known Allergies Allergy Verified 02/25/21 22:28 Physical Exam Osteopathic Statement: *. No significant issues noted on an osteopathic structural exam other than those noted in the History and Physical/Consult. Vitals: Vital Signs Temp Pulse Pulse Resp BP BP Pulse Ox 02/26/21 12:05 97.7 F 100 18 124/66 92 L 02/26/21 09:00 101.7 F H 108 H 20 128/64 91 L 02/26/21 03:36 100.9 F H 109 H 20 143/83 92 L 02/26/21 02:32 110 H 20 126/75 94 L 02/26/21 02:30 110 H 02/26/21 01:10 91 18 102/70 95 02/26/21 00:00 98.6 F 107 H 18 96 02/25/21 22:14 115 H 18 119/64 93 L 02/25/21 21:39 99.3 F 111 H 20 139/79 92 L Intake and Output 02/25/21 02/26/21 02/26/21 22:59 06:59 14:59 Intake Total 120 Balance 120 Intake: Oral 120 Other: Voiding Method Toilet Toilet # Voids 2 Weight 136.078 kg 139 kg No acute distress, oriented 3. Nasal O2 in place of between 2-3 L. HEENT examination is grossly unremarkable. Neck supple. Full range of motion. No adenopathy thyromegaly or neck vein distention. Cardiovascular examination reveals regular rhythm rate. S1-S2 normal. No S3 or S4. No discernible murmur noted. Heart rate 100 bpm. Heart sounds are distant. Lungs reveal coarse bilateral inspiratory and expiratory rhonchi. No wheezes. No crackles. Breath sounds are equal bilaterally. Abdomen soft bowel sounds are heard. No masses or tenderness. Extremities are intact. No cyanosis clubbing or edema. Skin is without rash or lesion. Neurologic examination is brief but nonfocal. Results - Laboratory Findings CBC and BMP: 02/25/21 22:24 02/25/21 22:24 PT/INR, D-dimer PT 9.5 sec (9.0-12.0) 02/25/21 22:24 INR 0.9 (<1.2) 02/25/21 22:24 D-Dimer 0.61 mg/L FEU (<0.60) H 02/25/21 22:24 Abnormal lab findings: Abnormal Labs 02/25/21 02/25/21 02/25/21 22:24 22:24 22:24 Lymphocytes # 0.9 L D-Dimer 0.61 H Sodium 133 L Potassium 3.4 L Chloride 97 L Glucose 213 H POC Glucose (mg/dL) AST 66 H ALT 41 H Alkaline Phosphatase 145 H Lactate Dehydrogenase 703 H C-Reactive Protein 15.5 H 02/26/21 11:46 Lymphocytes # D-Dimer Sodium Potassium Chloride Glucose POC Glucose (mg/dL) 300 H AST ALT Alkaline Phosphatase Lactate Dehydrogenase C-Reactive Protein - Diagnostic Findings Chest x-ray: image reviewed CT scan - chest: image reviewed Assessment and Plan Assessment: Acute hypoxemic respiratory failure secondary to coronavirus associated pneumonia. History of hiatal hernia and occasional gastroesophageal reflux disease. Obesity. Plan: Plan dated 02/26/2021. There was no evidence of pulmonary embolism on CT angiogram. Chest x-ray and computed tomography scan showed evidence of a diffuse bilateral infiltrates consistent with coronavirus associated pneumonia. We feel the patient is a good candidate for REM. In addition, the patient should get Lovenox 40 mg subcu daily, Decadron 6 mg orally or IV daily, and vitamin C, vitamin D3, and zinc. Additional recommendations and suggestions are forthcoming. We will watch the patient carefully for additional deterioration. Prognosis is guarded. We will continue to make recommendations where appropriate. Time with Patient: Greater than 30
[2021-02-26 16:40] LABS: Glucose,Whole Blood 327 mg/dL (75-99)
--- NOTE | 2021-02-26 19:17 | P.HPIM ---
History of Present Illness H&P Date: 02/26/21 Chief Complaint: Shortness of breath/fever 40-year-old female, who apparently began to get sick last Sunday/Sunday. She's been sick for about 6 days or so. The patient was tested for coronavirus, and turned out to be positive. The patient's complaints included shortness of breath, cough, fever, chills, muscle aches, and generally just not feeling well, which has progressed through the last few days. For that reason, she came in to be evaluated. She was seen in the emergency room on February 25. She is on 2-3 L, with saturations of about 92-93%. We thought she was a good candidate for REM. In addition, she should get Lovenox, Decadron, and vitamin C, D3, and zinc. White count 4.3, with a normal hemoglobin, hematocrit, and platelet count. D- dimer was 0.61. Sodium 133, potassium 3.4, chlorides 97, CO2 24, anion gap normal, BUN 8, with a creatinine 0.58. C-reactive protein is 15.5. LDH is 703. Chest x-ray showed new bilateral pulmonary infiltrates. CT angiogram was negative for PE. Diffuse bilateral infiltrates were seen. Review of Systems REVIEW OF SYSTEMS: CONSTITUTIONAL: No fever, no malaise, no fatigue. HEENT: No recent visual problems or hearing problems. Denied any sore throat. CARDIOVASCULAR: No chest pain, orthopnea, PND, no palpitations, no syncope. PULMONARY: shortness of breath. GASTROINTESTINAL: No diarrhea, no nausea, no vomiting, no abdominal pain. NEUROLOGICAL: No headaches, no weakness, no numbness. HEMATOLOGICAL: Denies any bleeding or petechiae. GENITOURINARY: Denies any burning micturition, frequency, or urgency. MUSCULOSKELETAL/RHEUMATOLOGICAL: Denies any joint pain, swelling, or any muscle pain. ENDOCRINE: Denies any polyuria or polydipsia. The rest of the 14-point review of systems is negative. Past Medical History Past Medical History: GERD/Reflux Additional Past Medical History / Comment(s): Hiatal hernia History of Any Multi-Drug Resistant Organisms: None Reported Past Surgical History: Section Additional Past Surgical History / Comment(s): section in 2017. Past Anesthesia/Blood Transfusion Reactions: No Reported Reaction Past Psychological History: No Psychological Hx Reported Smoking Status: Never smoker Past Alcohol Use History: Occasional, Rare Past Drug Use History: None Reported - Past Family History Mother Family Medical History: No Reported History Additional Family Medical History / Comment(s): Hypothyroidism Father Family Medical History: Hyperlipidemia Medications and Allergies Home Medications Medication Instructions Recorded Confirmed Type Acetaminophen Tab [Tylenol Tab] 1,000 mg PO Q6HR PRN 02/25/21 02/25/21 History Ibuprofen [Motrin Ib] 800 mg PO Q8H PRN 02/25/21 02/25/21 History Allergies Allergy/AdvReac Type Severity Reaction Status Date / Time No Known Allergies Allergy Verified 02/25/21 22:28 Physical Exam Vitals: Vital Signs Temp Pulse Pulse Resp BP BP Pulse Ox 02/26/21 09:00 101.7 F H 108 H 20 128/64 91 L 02/26/21 03:36 100.9 F H 109 H 20 143/83 92 L 02/26/21 02:32 110 H 20 126/75 94 L 02/26/21 02:30 110 H 02/26/21 01:10 91 18 102/70 95 02/26/21 00:00 98.6 F 107 H 18 96 02/25/21 22:14 115 H 18 119/64 93 L 02/25/21 21:39 99.3 F 111 H 20 139/79 92 L Intake and Output 02/25/21 02/26/21 02/26/21 22:59 06:59 14:59 Intake Total 120 Balance 120 Intake: Oral 120 Other: Voiding Method Toilet Toilet # Voids 2 Weight 136.078 kg 139 kg HEENT examination is grossly unremarkable. Neck supple. Full range of motion. No adenopathy thyromegaly or neck vein distention. Cardiovascular examination reveals regular rhythm rate. S1-S2 normal. No S3 or S4. No discernible murmur noted. Heart rate 100 bpm. Heart sounds are distant. Lungs reveal coarse bilateral inspiratory and expiratory rhonchi. No wheezes. No crackles. Breath sounds are equal bilaterally. Abdomen soft bowel sounds are heard. No masses or tenderness. Extremities are intact. No cyanosis clubbing or edema. Skin is without rash or lesion. Neurologic examination is brief but nonfocal. Results CBC & Chem 7: 02/25/21 22:24 02/25/21 22:24 Labs: Abnormal Lab Results - Last 24 Hours (Table) 02/25/21 02/25/21 02/25/21 Range/Units 22:24 22:24 22:24 Lymphocytes # 0.9 L (1.0-4.8) k/uL D-Dimer 0.61 H (<0.60) mg/L FEU Sodium 133 L (137-145) mmol/L Potassium 3.4 L (3.5-5.1) mmol/L Chloride 97 L (98-107) mmol/L Glucose 213 H (74-99) mg/dL AST 66 H (14-36) U/L ALT 41 H (4-34) U/L Alkaline Phosphatase 145 H (38-126) U/L Lactate Dehydrogenase 703 H (313-618) U/L C-Reactive Protein 15.5 H (<1.0) mg/dL Thrombosis Risk Factor Assmnt - Choose All That Apply Each Factor Represents 1 point: Age 41-60 years Other Risk Factors: No Other congenital or acquired thrombophilia - If yes, enter type in comment: No Thrombosis Risk Factor Assessment Total Risk Factor Score: 1 Thrombosis Risk Factor Assessment Level: Low Risk Assessment and Plan Assessment: 1. Acute hypoxemic respiratory failure - Patient remains O2 per nasal cannula; we will plan to titrate as needed 2. COVID-19 bilateral pneumonia - Patient has been placed on REM, Lovenox 40 mg subcu daily, Decadron 6 mg daily along with COVID-19 vitamin cocktail - Patient started on azithromycin 500 mg by mouth daily - Continue with albuterol inhaler 2 puffs 4 times a day when necessary - Monitor Accu-Cheks every before meals and at bedtime with insulin sliding scale 3. Morbid obesity; counseling done 4. GERD; stable DVT prophylaxis; SCDs/subcu Lovenox CODE STATUS; full code
[2021-02-26] MEDS ORDERED: Potassium Replacement Protocol 1 EACH MISC MISCELLANE PRN (19:20)
[2021-02-26 20:57] LABS: Glucose,Whole Blood 322 mg/dL (75-99)
[2021-02-26] MEDS: POTASSIUM CHLORIDE ER 20 MEQ TAB.ER PO SCH ×2 (20:58→22:30)
[2021-02-27] MEDS: IBUPROFEN 400 MG TAB PO PRN ×2 (01:17→23:37)
[2021-02-27 06:28] LABS: Glucose,Whole Blood 138 mg/dL (75-99)
[2021-02-27] MEDS: INSULIN ASPART (NovoLOG) 100 UNIT/ML VIAL SQ SCH ×4 (06:40→20:47)
[2021-02-27] MEDS: ALBUTEROL HFA INHALER INHALATION SCH ×4 (07:28→20:20)
[2021-02-27] MEDS: DEXAMETHASONE SOD PHOSPHATE 10 MG/ML 1 ML VIAL IV SCH (08:14)
[2021-02-27] MEDS: ENOXAPARIN 40 MG/0.4 ML SYRINGE SQ SCH (08:14)
[2021-02-27] MEDS: CHOLECALCIFEROL 25 MCG (1000 IU) TABLET PO SCH (08:14)
[2021-02-27] MEDS: ASCORBIC ACID 500 MG TAB PO SCH (08:14)
[2021-02-27] MEDS: AZITHROMYCIN 500 MG TAB PO SCH (08:14)
[2021-02-27 11:39] LABS: Glucose,Whole Blood 220 mg/dL (75-99)
[2021-02-27] MEDS ORDERED: FLUCONAZOLE 150 MG TAB PO STA (11:56)
[2021-02-27] MEDS: REMDESIVIR 100 MG in SODIUM CHLORIDE 0.9% 250 ML IVPB SCH (12:46)
[2021-02-27 13:21] LABS: African American GFR (CKD) >90 (>60 ml/min/1.73 sqM); Anion Gap 11 mmol/L; Blood Urea Nitrogen 11 mg/dL (7-17); Calcium 9.2 mg/dL (8.4-10.2); Carbon Dioxide 24 mmol/L (22-30); Chloride 101 mmol/L (98-107); Glucose 268 mg/dL (74-99); Non-African American GFR(CKD) >90 (>60 ml/min/1.73 sqM); Potassium 4.2 mmol/L (3.5-5.1); Sodium 136 mmol/L (137-145)
--- NOTE | 2021-02-27 14:36 | P.PN ---
Subjective Progress Note Date: 02/27/21 Principal diagnosis: Dyspnea, hypoxia, COVID-19 pneumonia 40-year-old female, who apparently began to get sick last Sunday/Sunday. She's been sick for about 6 days or so. The patient was tested for coronavirus, and turned out to be positive. The patient's complaints included shortness of breath, cough, fever, chills, muscle aches, and generally just not feeling well, which has progressed through the last few days. For that reason, she came in to be evaluated. She was seen in the emergency room on February 25. The patient's resting comfortably but, is requiring oxygen therapy. She is on 2-3 L, with saturations of about 92-93%. We thought she was a good candidate for REM. In addition, she should get Lovenox, Decadron, and vitamin C, D3, and zinc. White count 4.3, with a normal hemoglobin, hematocrit, and platelet count. D-dimer was 0.61. Sodium 133, potassium 3.4, chlorides 97, CO2 24, anion gap normal, BUN 8, with a creatinine 0.58. C-reactive protein is 15.5. LDH is 703. Chest x-ray showed new bilateral pulmonary infiltrates. CT angiogram was negative for PE. Diffuse bilateral infiltrates were seen. Other than a hiatal hernia, and occasional acid reflux disease, the patient is otherwise healthy. On 02/27/2021 patient seen in follow-up on selective care unit, she states if she sits still she does not feel any distress however if she walks or exerts herself she starts having coughing attacks, becomes dizzy. Her shortness of breath worsens. She is resting in bed currently, on 5 L of oxygen with pulse ox of 92%, she has been afebrile, in no acute distress, no chest discomfort. CT angiogram was negative for pulmonary embolism, there were diffuse bilateral infiltrates. Patient continues on Remdesivir, day 2 of treatment, she is on dexamethasone 6 mg, Lovenox, and COVID-19 vitamins. In addition she states she developed vaginal yeast infection, and she is requesting something for it. Today's labs have been reviewed, electrolytes and renal profile are unremarkable, disease, d-dimer, and CRP are pending Objective - Vital Signs Vital signs: Vital Signs Temp 98.3 F 02/27/21 12:45 Pulse 96 02/27/21 12:45 Resp 20 02/27/21 12:45 BP 116/56 02/27/21 12:45 Pulse Ox 92 L 02/27/21 12:45 Intake & Output 02/26/21 02/27/21 02/27/21 18:59 06:59 18:59 Intake Total 600 240 Balance 600 240 Weight 138 kg Intake: Oral 600 240 Other: Voiding Method Toilet Toilet Toilet # Voids 2 1 1 - Exam GENERAL EXAM: Alert, very pleasant, 40-year-old white female, on 5 L of oxygen pulse ox of 92% comfortable in no apparent distress. HEAD: Normocephalic/atraumatic. EYES: Normal reaction of pupils, equal size. Conjunctiva pink, sclera white. NOSE: Clear with pink turbinates. THROAT: No erythema or exudates. NECK: No masses, no JVD, no thyroid enlargement, no adenopathy. CHEST: No chest wall deformity. Symmetrical expansion. LUNGS: Equal air entry with no crackles, wheeze, rhonchi or dullness. CVS: Regular rate and rhythm, normal S1 and S2, no gallops, no murmurs, no rubs ABDOMEN: Soft, nontender. No hepatosplenomegaly, normal bowel sounds, no guarding or rigidity. EXTREMITIES: No clubbing, no edema, no cyanosis, 2+ pulses and upper and lower extremities. MUSCULOSKELETAL: Muscle strength and tone normal. SPINE: No scoliosis or deformity SKIN: No rashes CENTRAL NERVOUS SYSTEM: Alert and oriented -3. No focal deficits, tone is normal in all 4 extremities. PSYCHIATRIC: Alert and oriented -3. Appropriate affect. Intact judgment and insight. - Labs CBC & Chem 7: 02/25/21 22:24 02/27/21 12:43 Labs: Abnormal Lab Results - Last 24 Hours (Table) 02/26/21 02/26/21 02/27/21 Range/Units 16:37 20:56 06:26 Sodium (137-145) mmol/L Creatinine (0.52-1.04) mg/dL Glucose (74-99) mg/dL POC Glucose (mg/dL) 327 H 322 H 138 H (75-99) mg/dL 02/27/21 02/27/21 Range/Units 11:37 12:43 Sodium 136 L (137-145) mmol/L Creatinine 0.50 L (0.52-1.04) mg/dL Glucose 268 H (74-99) mg/dL POC Glucose (mg/dL) 220 H (75-99) mg/dL Microbiology - Last 24 Hours (Table) 02/25/21 22:05 Blood Culture - Preliminary Blood No Growth after 24 hours 02/25/21 22:24 Blood Culture - Preliminary Blood No Growth after 24 hours Assessment and Plan Plan: Assessment: #1. Acute hypoxic respiratory failure secondary acute COVID-19 pneumonia, patient was started on Remdesivir on 02/26/2021 in addition to Decadron, and Lovenox. Onset of symptoms was 6 days prior to presentation #2. Smoker #3. GERD/reflux #4. Steroid-induced hyperglycemia #5. Vaginal candidiasis Plan: Continue current medical treatment Today's date to a Remdesivir treatment Continue Decadron, continue prophylactic Lovenox Follow-up d-dimer, and inflammatory markers tomorrow One-time dose of Diflucan 150 mg orally, for vaginal yeast infection Monitor for any worsening dyspnea or hypoxia We'll continue to follow I performed a history & physical examination of the patient and discussed their management with my nurse practitioner, Kelly Landry. I reviewed the nurse practitioner's note and agree with the documented findings and plan of care. Lung sounds are positive for diminished breath sounds throughout the lung skinner. The findings and the impression was discussed with the patient. I attest to the documentation by the nurse practitioner. Time with Patient: Less than 30
[2021-02-27 16:48] LABS: Glucose,Whole Blood 294 mg/dL (75-99)
[2021-02-27] MEDS ORDERED: LORazepam 0.5 MG TAB PO PRN (19:32)
[2021-02-27 19:54] LABS: Glucose,Whole Blood 247 mg/dL (75-99)
[2021-02-27] MEDS: SODIUM CHLORIDE 0.9% 1,000 ML IV SCH (20:47)
[2021-02-28 05:55] LABS: Glucose,Whole Blood 174 mg/dL (75-99)
[2021-02-28] MEDS: INSULIN ASPART (NovoLOG) 100 UNIT/ML VIAL SQ SCH ×4 (06:30→20:37)
[2021-02-28 07:20] LABS: Basophils % (A) 0 %; Eosinophils % (A) 0 %; HGB 11.9 gm/dL (11.4-16.0); Lymphocytes # (A) 0.8 k/uL (1.0-4.8); Lymphocytes % (A) 17 %; MCH 27.9 pg (25.0-35.0); MCHC 33.1 g/dL (31.0-37.0); MCV 84.3 fL (80.0-100.0); Mean Platelet Volume 7.1; Monocytes # (A) 0.3 k/uL (0-1.0); Monocytes % (A) 6 %; Neutrophils # (A) 3.7 k/uL (1.3-7.7); Neutrophils % (A) 75 %; Platelet Count 276 k/uL (150-450); RBC 4.27 m/uL (3.80-5.40); RDW 13.9 % (11.5-15.5)
[2021-02-28] MEDS: ALBUTEROL HFA INHALER INHALATION SCH ×4 (07:20→20:57)
[2021-02-28 07:54] LABS: African American GFR (CKD) >90 (>60 ml/min/1.73 sqM); Anion Gap 10 mmol/L; Blood Urea Nitrogen 16 mg/dL (7-17); C Reactive Protein 7.4 mg/dL (<1.0); Carbon Dioxide 24 mmol/L (22-30); Chloride 103 mmol/L (98-107); Glucose 194 mg/dL (74-99); LDH 843 U/L (313-618); Non-African American GFR(CKD) >90 (>60 ml/min/1.73 sqM); Potassium 3.8 mmol/L (3.5-5.1); Sodium 137 mmol/L (137-145)
[2021-02-28] MEDS: ASCORBIC ACID 500 MG TAB PO SCH (09:05)
[2021-02-28] MEDS: IBUPROFEN 400 MG TAB PO PRN (09:05)
[2021-02-28] MEDS: CHOLECALCIFEROL 25 MCG (1000 IU) TABLET PO SCH (09:05)
[2021-02-28] MEDS: DEXAMETHASONE SOD PHOSPHATE 10 MG/ML 1 ML VIAL IV SCH (09:06)
[2021-02-28] MEDS: ENOXAPARIN 40 MG/0.4 ML SYRINGE SQ SCH (09:07)
--- NOTE | 2021-02-28 09:47 | P.PN ---
Subjective Progress Note Date: 02/28/21 40-year-old female, who apparently began to get sick last Sunday/Sunday. She's been sick for about 6 days or so. The patient was tested for coronavirus, and turned out to be positive. The patient's complaints included shortness of breath, cough, fever, chills, muscle aches, and generally just not feeling well, which has progressed through the last few days. For that reason, she came in to be evaluated. She was seen in the emergency room on February 25. The patient's resting comfortably but, is requiring oxygen therapy. She is on 2-3 L, with saturations of about 92-93%. We thought she was a good candidate for REM. In addition, she should get Lovenox, Decadron, and vitamin C, D3, and zinc. White count 4.3, with a normal hemoglobin, hematocrit, and platelet count. D-dimer was 0.61. Sodium 133, potassium 3.4, chlorides 97, CO2 24, anion gap normal, BUN 8, with a creatinine 0.58. C-reactive protein is 15.5. LDH is 703. Chest x-ray showed new bilateral pulmonary infiltrates. CT angiogram was negative for PE. Diffuse bilateral infiltrates were seen. Other than a hiatal hernia, and occasional acid reflux disease, the patient is otherwise healthy. On 02/27/2021 patient seen in follow-up on selective care unit, she states if she sits still she does not feel any distress however if she walks or exerts herself she starts having coughing attacks, becomes dizzy. Her shortness of breath worsens. She is resting in bed currently, on 5 L of oxygen with pulse ox of 92%, she has been afebrile, in no acute distress, no chest discomfort. CT angiogram was negative for pulmonary embolism, there were diffuse bilateral infiltrates. Patient continues on Remdesivir, day 2 of treatment, she is on dexamethasone 6 mg, Lovenox, and COVID-19 vitamins. In addition she states she developed vaginal yeast infection, and she is requesting something for it. Today's labs have been reviewed, electrolytes and renal profile are unremarkable, disease, d-dimer, and CRP are pending 02/28/2021, the patient is being seen for a follow-up. The patient is doing well on 6 L about 2 by nasal cannula. Her pulse ox is currently ranging around 90-91%. She easily desaturates with movement and activity. Otherwise, no confusion. No altered mentation. No diarrhea. No chest pain. No significant cough and her breathing is nonlabored at this point in time. She is a healthy 40-year-old individual. The angiogram showed no evidence of any pulmonary embolism. The patient diffuse breath and pulmonary infiltrates consistent with COVID-19 related pneumonia and the patient remains on a combination of Decadron and Remdesivir.The labs from today showed a d-dimer of 0.7. The patient's LDH level is 843. Pro-calcitonin level from the time of admission was 0.12. Objective - Vital Signs Vital signs: Vital Signs Temp 97.2 F L 02/28/21 03:20 Pulse 74 02/28/21 03:20 Resp 20 02/28/21 03:20 BP 114/64 02/28/21 03:20 Pulse Ox 92 L 02/28/21 03:20 Intake & Output 02/27/21 02/28/21 02/28/21 18:59 06:59 18:59 Intake Total 358 180 Balance 358 180 Weight 138 kg Intake: Oral 358 180 Other: Voiding Method Toilet Toilet # Voids 2 2 - Exam No acute distress, oriented 3. Nasal O2 in place of between 5-6 L. HEENT examination is grossly unremarkable. Neck supple. Full range of motion. No adenopathy thyromegaly or neck vein distention. Cardiovascular examination reveals regular rhythm rate. S1-S2 normal. No S3 or S4. No discernible murmur noted. Heart rate 100 bpm. Heart sounds are distant. Lungs reveal coarse bilateral inspiratory and expiratory rhonchi. No wheezes. No crackles. Breath sounds are equal bilaterally. Abdomen soft bowel sounds are heard. No masses or tenderness. Extremities are intact. No cyanosis clubbing or edema. Skin is without rash or lesion. Neurologic examination is brief but nonfocal. - Labs CBC & Chem 7: 02/28/21 06:49 02/28/21 06:49 Labs: Abnormal Lab Results - Last 24 Hours (Table) 02/27/21 02/27/21 02/27/21 Range/Units 11:37 12:43 16:43 Lymphocytes # (1.0-4.8) k/uL D-Dimer (<0.60) mg/L FEU Sodium 136 L (137-145) mmol/L Creatinine 0.50 L (0.52-1.04) mg/dL Glucose 268 H (74-99) mg/dL POC Glucose (mg/dL) 220 H 294 H (75-99) mg/dL Lactate Dehydrogenase (313-618) U/L C-Reactive Protein (<1.0) mg/dL 02/27/21 02/28/21 02/28/21 Range/Units 19:51 05:53 06:49 Lymphocytes # (1.0-4.8) k/uL D-Dimer 0.70 H (<0.60) mg/L FEU Sodium (137-145) mmol/L Creatinine (0.52-1.04) mg/dL Glucose (74-99) mg/dL POC Glucose (mg/dL) 247 H 174 H (75-99) mg/dL Lactate Dehydrogenase (313-618) U/L C-Reactive Protein (<1.0) mg/dL 02/28/21 02/28/21 Range/Units 06:49 06:49 Lymphocytes # 0.8 L (1.0-4.8) k/uL D-Dimer (<0.60) mg/L FEU Sodium (137-145) mmol/L Creatinine (0.52-1.04) mg/dL Glucose 194 H (74-99) mg/dL POC Glucose (mg/dL) (75-99) mg/dL Lactate Dehydrogenase 843 H (313-618) U/L C-Reactive Protein 7.4 H (<1.0) mg/dL Microbiology - Last 24 Hours (Table) 02/25/21 22:24 Blood Culture - Preliminary Blood No Growth after 48 hours 02/25/21 22:05 Blood Culture - Preliminary Blood No Growth after 48 hours Assessment and Plan Plan: #1. Acute hypoxic respiratory failure secondary acute COVID-19 pneumonia, patient was started on Remdesivir on 02/26/2021 in addition to Decadron, and Lovenox. Onset of symptoms was 6 days prior to presentation to the hospital. The patient is currently on a combination of Decadron and Remdesivir. #2. Smoker #3. GERD/reflux #4. Steroid-induced hyperglycemia #5. Vaginal candidiasis Plan: Continue current medical treatment Continues to require high oxygen flow somewhat between 5 and 6 L Continue Decadron Continue Lovenox Continue Remdesivir D-dimer is mildly elevated LDH is mildly elevated Monitor for any worsening dyspnea or hypoxia We'll continue to follow
[2021-02-28 11:37] LABS: Glucose,Whole Blood 204 mg/dL (75-99)
--- NOTE | 2021-02-28 12:14 | P.PN ---
Subjective Progress Note Date: 02/27/21 Principal diagnosis: COVID-19 pneumonia 40-year-old female, who apparently began to get sick last Sunday/Sunday. She's been sick for about 6 days or so. The patient was tested for coronavirus, and turned out to be positive. The patient's complaints included shortness of breath, cough, fever, chills, muscle aches, and generally just not feeling well, which has progressed through the last few days. For that reason, she came in to be evaluated. She was seen in the emergency room on February 25. She is on 2-3 L, with saturations of about 92-93%. We thought she was a good candidate for REM. In addition, she should get Lovenox, Decadron, and vitamin C, D3, and zinc. White count 4.3, with a normal hemoglobin, hematocrit, and platelet count. D- dimer was 0.61. Sodium 133, potassium 3.4, chlorides 97, CO2 24, anion gap normal, BUN 8, with a creatinine 0.58. C-reactive protein is 15.5. LDH is 703. Chest x-ray showed new bilateral pulmonary infiltrates. CT angiogram was negative for PE. Diffuse bilateral infiltrates were seen. 02/27/2021 Patient is seen and evaluated and discussed with nursing staff; reports improved breathing but continues to remain short of breath with activity Vital signs are reviewed with temperature 98.3, pulse 86, respiration 20 and blood pressure 116/56 with O2 saturation of 92% on 5-[address] angiogram was negative for PE but remains bilateral infiltrates consistent with COVID-19 pneumonia Patient continues on Remdesivir, day 2 of treatment, she is on dexamethasone 6 mg, Lovenox, and COVID-19 vitamins; patient has been placed on oral Diflucan for vaginal yeast infection Objective - Vital Signs Vital signs: Vital Signs Temp 98.4 F 02/27/21 08:10 Pulse 118 H 02/27/21 08:10 Resp 20 02/27/21 08:10 BP 127/70 02/27/21 08:10 Pulse Ox 91 L 02/27/21 11:19 Intake & Output 02/26/21 02/27/21 02/27/21 18:59 06:59 18:59 Intake Total 600 Balance 600 Weight 138 kg Intake: Oral 600 Other: Voiding Method Toilet Toilet Toilet # Voids 2 1 - Exam PHYSICAL EXAMINATION: GENERAL: The patient is alert and oriented x3, not in any acute distress. Well developed, well nourished. HEENT: Pupils are round and equally reacting to light. EOMI. No scleral icterus. No conjunctival pallor. Normocephalic, atraumatic. No pharyngeal erythema. No thyromegaly. CARDIOVASCULAR: S1 and S2 present. No murmurs, rubs, or gallops. PULMONARY: Chest is clear to auscultation, no wheezing or crackles. ABDOMEN: Soft, nontender, nondistended, normoactive bowel sounds. No palpable organomegaly. MUSCULOSKELETAL: No joint swelling or deformity. EXTREMITIES: No cyanosis, clubbing, or pedal edema. NEUROLOGICAL: Gross neurological examination did not reveal any focal deficits. SKIN: No rashes. - Labs CBC & Chem 7: 02/28/21 06:49 02/28/21 06:49 Labs: Abnormal Lab Results - Last 24 Hours (Table) 02/25/21 02/25/21 02/26/21 Range/Units 22:24 22:24 11:46 POC Glucose (mg/dL) 300 H (75-99) mg/dL Ferritin 298.0 H (10.0-291.0) ng/mL Procalcitonin 0.12 H (0.02-0.09) ng/mL 02/26/21 02/26/21 02/27/21 Range/Units 16:37 20:56 06:26 POC Glucose (mg/dL) 327 H 322 H 138 H (75-99) mg/dL Ferritin (10.0-291.0) ng/mL Procalcitonin (0.02-0.09) ng/mL 02/27/21 Range/Units 11:37 POC Glucose (mg/dL) 220 H (75-99) mg/dL Ferritin (10.0-291.0) ng/mL Procalcitonin (0.02-0.09) ng/mL Microbiology - Last 24 Hours (Table) 02/25/21 22:05 Blood Culture - Preliminary Blood No Growth after 24 hours 02/25/21 22:24 Blood Culture - Preliminary Blood No Growth after 24 hours Assessment and Plan Assessment: 1. Acute hypoxemic respiratory failure - Patient remains O2 per nasal cannula; we will plan to titrate as needed 2. COVID-19 bilateral pneumonia - Patient has been placed on REM, Lovenox 40 mg subcu daily, Decadron 6 mg daily along with COVID-19 vitamin cocktail - Patient started on azithromycin 500 mg by mouth daily - Continue with albuterol inhaler 2 puffs 4 times a day when necessary - Monitor Accu-Cheks every before meals and at bedtime with insulin sliding scale 3. Morbid obesity; counseling done 4. GERD; stable DVT prophylaxis; SCDs/subcu Lovenox CODE STATUS; full code
[2021-02-28] MEDS: REMDESIVIR 100 MG in SODIUM CHLORIDE 0.9% 250 ML IVPB SCH (13:02)
[2021-02-28 16:37] LABS: Glucose,Whole Blood 322 mg/dL (75-99)
--- NOTE | 2021-02-28 18:05 | P.PN ---
Subjective Progress Note Date: 02/28/21 Principal diagnosis: COVID-19 pneumonia 40-year-old female, who apparently began to get sick last Sunday/Sunday. She's been sick for about 6 days or so. The patient was tested for coronavirus, and turned out to be positive. The patient's complaints included shortness of breath, cough, fever, chills, muscle aches, and generally just not feeling well, which has progressed through the last few days. For that reason, she came in to be evaluated. She was seen in the emergency room on February 25. She is on 2-3 L, with saturations of about 92-93%. We thought she was a good candidate for REM. In addition, she should get Lovenox, Decadron, and vitamin C, D3, and zinc. White count 4.3, with a normal hemoglobin, hematocrit, and platelet count. D- dimer was 0.61. Sodium 133, potassium 3.4, chlorides 97, CO2 24, anion gap normal, BUN 8, with a creatinine 0.58. C-reactive protein is 15.5. LDH is 703. Chest x-ray showed new bilateral pulmonary infiltrates. CT angiogram was negative for PE. Diffuse bilateral infiltrates were seen. 02/27/2021 Patient is seen and evaluated and discussed with nursing staff; reports improved breathing but continues to remain short of breath with activity Vital signs are reviewed with temperature 98.3, pulse 86, respiration 20 and blood pressure 116/56 with O2 saturation of 92% on 5-[address] angiogram was negative for PE but remains bilateral infiltrates consistent with COVID-19 pneumonia Patient continues on Remdesivir, day 2 of treatment, she is on dexamethasone 6 mg, Lovenox, and COVID-19 vitamins; patient has been placed on oral Diflucan for vaginal yeast infection 02/28/2021 patient is seen and evaluated; for follow-up currently on O2 at 6 L per nasal cannula with saturations; ranging between 90-91% patient does desaturate easily withCT angiogram showed no evidence of any pulmonary embolism. The patient diffuse breath and pulmonary infiltrates consistent with COVID-19 related pneumonia and the patient remains on a combination of Decadron and Remdesivir.The labs from today showed a d-dimer of 0.7. The patient's LDH level is 843. Pro-calcitonin level from the time of admission was 0.12. Objective - Vital Signs Vital signs: Vital Signs Temp 96.5 F L 02/28/21 11:40 Pulse 82 02/28/21 11:40 Resp 16 02/28/21 11:40 BP 120/68 02/28/21 11:40 Pulse Ox 90 L 02/28/21 11:40 Intake & Output 02/27/21 02/28/21 02/28/21 18:59 06:59 18:59 Intake Total 358 180 Balance 358 180 Weight 138 kg Intake: Oral 358 180 Other: Voiding Method Toilet Toilet # Voids 2 2 2 - Exam PHYSICAL EXAMINATION: GENERAL: The patient is alert and oriented x3, not in any acute distress. Well developed, well nourished. HEENT: Pupils are round and equally reacting to light. EOMI. No scleral icterus. No conjunctival pallor. Normocephalic, atraumatic. No pharyngeal erythema. No thyromegaly. CARDIOVASCULAR: S1 and S2 present. No murmurs, rubs, or gallops. PULMONARY: Chest is clear to auscultation, no wheezing or crackles. ABDOMEN: Soft, nontender, nondistended, normoactive bowel sounds. No palpable organomegaly. MUSCULOSKELETAL: No joint swelling or deformity. EXTREMITIES: No cyanosis, clubbing, or pedal edema. NEUROLOGICAL: Gross neurological examination did not reveal any focal deficits. SKIN: No rashes. - Labs CBC & Chem 7: 02/28/21 06:49 02/28/21 06:49 Labs: Abnormal Lab Results - Last 24 Hours (Table) 02/27/21 02/27/21 02/28/21 Range/Units 16:43 19:51 05:53 Lymphocytes # (1.0-4.8) k/uL D-Dimer (<0.60) mg/L FEU Glucose (74-99) mg/dL POC Glucose (mg/dL) 294 H 247 H 174 H (75-99) mg/dL Lactate Dehydrogenase (313-618) U/L C-Reactive Protein (<1.0) mg/dL 02/28/21 02/28/21 02/28/21 Range/Units 06:49 06:49 06:49 Lymphocytes # 0.8 L (1.0-4.8) k/uL D-Dimer 0.70 H (<0.60) mg/L FEU Glucose 194 H (74-99) mg/dL POC Glucose (mg/dL) (75-99) mg/dL Lactate Dehydrogenase 843 H (313-618) U/L C-Reactive Protein 7.4 H (<1.0) mg/dL 02/28/21 Range/Units 11:33 Lymphocytes # (1.0-4.8) k/uL D-Dimer (<0.60) mg/L FEU Glucose (74-99) mg/dL POC Glucose (mg/dL) 204 H (75-99) mg/dL Lactate Dehydrogenase (313-618) U/L C-Reactive Protein (<1.0) mg/dL Microbiology - Last 24 Hours (Table) 02/25/21 22:24 Blood Culture - Preliminary Blood No Growth after 48 hours 02/25/21 22:05 Blood Culture - Preliminary Blood No Growth after 48 hours Assessment and Plan Assessment: 1. Acute hypoxemic respiratory failure - Patient remains O2 per nasal cannula; we will plan to titrate as needed 2. COVID-19 bilateral pneumonia - Patient has been placed on REM, Lovenox 40 mg subcu daily, Decadron 6 mg daily along with COVID-19 vitamin cocktail - Patient started on azithromycin 500 mg by mouth daily - Continue with albuterol inhaler 2 puffs 4 times a day when necessary - Monitor Accu-Cheks every before meals and at bedtime with insulin sliding scale 3. Morbid obesity; counseling done 4. GERD; stable DVT prophylaxis; SCDs/subcu Lovenox CODE STATUS; full code
[2021-02-28 20:07] LABS: Glucose,Whole Blood 331 mg/dL (75-99)
[2021-02-28] MEDS: SODIUM CHLORIDE 0.9% 1,000 ML IV SCH (20:37)
[2021-03-01] MEDS: IBUPROFEN 400 MG TAB PO PRN (04:34)
[2021-03-01 06:20] LABS: Glucose,Whole Blood 179 mg/dL (75-99)
[2021-03-01] MEDS: INSULIN ASPART (NovoLOG) 100 UNIT/ML VIAL SQ SCH ×4 (06:25→19:49)
[2021-03-01] MEDS: ALBUTEROL HFA INHALER INHALATION SCH ×4 (08:08→20:40)
[2021-03-01] MEDS: ASCORBIC ACID 500 MG TAB PO SCH (09:03)
[2021-03-01] MEDS: CHOLECALCIFEROL 25 MCG (1000 IU) TABLET PO SCH (09:04)
[2021-03-01] MEDS: ENOXAPARIN 40 MG/0.4 ML SYRINGE SQ SCH (09:04)
[2021-03-01] MEDS: DEXAMETHASONE SOD PHOSPHATE 10 MG/ML 1 ML VIAL IV SCH (10:37)
--- NOTE | 2021-03-01 11:41 | P.PN ---
Subjective Progress Note Date: 03/01/21 40-year-old female, who apparently began to get sick last Sunday/Sunday. She's been sick for about 6 days or so. The patient was tested for coronavirus, and turned out to be positive. The patient's complaints included shortness of breath, cough, fever, chills, muscle aches, and generally just not feeling well, which has progressed through the last few days. For that reason, she came in to be evaluated. She was seen in the emergency room on February 25. The patient's resting comfortably but, is requiring oxygen therapy. She is on 2-3 L, with saturations of about 92-93%. We thought she was a good candidate for REM. In addition, she should get Lovenox, Decadron, and vitamin C, D3, and zinc. White count 4.3, with a normal hemoglobin, hematocrit, and platelet count. D-dimer was 0.61. Sodium 133, potassium 3.4, chlorides 97, CO2 24, anion gap normal, BUN 8, with a creatinine 0.58. C-reactive protein is 15.5. LDH is 703. Chest x-ray showed new bilateral pulmonary infiltrates. CT angiogram was negative for PE. Diffuse bilateral infiltrates were seen. Other than a hiatal hernia, and occasional acid reflux disease, the patient is otherwise healthy. On 02/27/2021 patient seen in follow-up on selective care unit, she states if she sits still she does not feel any distress however if she walks or exerts herself she starts having coughing attacks, becomes dizzy. Her shortness of breath worsens. She is resting in bed currently, on 5 L of oxygen with pulse ox of 92%, she has been afebrile, in no acute distress, no chest discomfort. CT angiogram was negative for pulmonary embolism, there were diffuse bilateral infiltrates. Patient continues on Remdesivir, day 2 of treatment, she is on dexamethasone 6 mg, Lovenox, and COVID-19 vitamins. In addition she states she developed vaginal yeast infection, and she is requesting something for it. Today's labs have been reviewed, electrolytes and renal profile are unremarkable, disease, d-dimer, and CRP are pending 02/28/2021, the patient is being seen for a follow-up. The patient is doing well on 6 L about 2 by nasal cannula. Her pulse ox is currently ranging around 90-91%. She easily desaturates with movement and activity. Otherwise, no confusion. No altered mentation. No diarrhea. No chest pain. No significant cough and her breathing is nonlabored at this point in time. She is a healthy 40-year-old individual. The angiogram showed no evidence of any pulmonary embolism. The patient diffuse breath and pulmonary infiltrates consistent with COVID-19 related pneumonia and the patient remains on a combination of Decadron and Remdesivir.The labs from today showed a d-dimer of 0.7. The patient's LDH level is 843. Pro-calcitonin level from the time of admission was 0.12. On 03/01/2021, the patient is coming being seen for a follow-up. She is a case of COVID-19 related pneumonia. She had a difficult night yesterday. She had coughing spells. She had some worsening in shortness of breath and hypoxemia and she is currently on 8 L of oxygen by nasal cannula. This morning, she is looking much better. She is much more comfortable and she is able to speak up longer sentences. She remains on a combination of Decadron and she did a dose of 6 mg on a daily basis and addition to Remdesivir day #4 4 and Lovenox 40 mg subcu on a daily basis. In terms of her markers, all of the markers are obt ained from yesterday. No new markers are from today. As mentioned, she is at 8 L. Her pro-calcitonin level was low. She has no specific complaints. No altered mentation. No nausea. No vomiting. No diarrhea. She'll be provided an incentive spirometer. Currently she is at 8 L. Objective - Vital Signs Vital signs: Vital Signs Temp 97.6 F 03/01/21 08:00 Pulse 76 03/01/21 08:00 Resp 20 03/01/21 08:00 BP 124/68 03/01/21 08:00 Pulse Ox 91 L 03/01/21 08:10 Intake & Output 02/28/21 03/01/21 03/01/21 18:59 06:59 18:59 Intake Total 600 180 Output Total 300 Balance 300 180 Weight 138.5 kg Intake: Oral 600 180 Output: Urine 300 Other: Voiding Method Toilet Bedside Commode Bedside Commode # Voids 2 2 - Exam No acute distress, oriented 3. Nasal O2 in place of between 8 L. HEENT examination is grossly unremarkable. Neck supple. Full range of motion. No adenopathy thyromegaly or neck vein distention. Cardiovascular examination reveals regular rhythm rate. S1-S2 normal. No S3 or S4. No discernible murmur noted. Heart rate 100 bpm. Heart sounds are distant. Lungs reveal coarse bilateral inspiratory and expiratory rhonchi. No wheezes. No crackles. Breath sounds are equal bilaterally. Abdomen soft bowel sounds are heard. No masses or tenderness. Extremities are intact. No cyanosis clubbing or edema. Skin is without rash or lesion. Neurologic examination is brief but nonfocal. - Labs CBC & Chem 7: 02/28/21 06:49 02/28/21 06:49 Labs: Abnormal Lab Results - Last 24 Hours (Table) 02/28/21 02/28/21 02/28/21 Range/Units 11:33 13:49 16:35 POC Glucose (mg/dL) 204 H 322 H (75-99) mg/dL Coronavirus (PCR) Detected A (Not Detectd) 02/28/21 03/01/21 Range/Units 20:06 06:19 POC Glucose (mg/dL) 331 H 179 H (75-99) mg/dL Coronavirus (PCR) (Not Detectd) Microbiology - Last 24 Hours (Table) 02/25/21 22:24 Blood Culture - Preliminary Blood No Growth after 72 hours 02/25/21 22:05 Blood Culture - Preliminary Blood No Growth after 72 hours Assessment and Plan Plan: #1. Acute hypoxic respiratory failure secondary acute COVID-19 pneumonia, patient was started on Remdesivir on 02/26/2021 in addition to Decadron, and Lovenox. Onset of symptoms was 6 days prior to presentation to the hospital. The patient is currently on a combination of Decadron and Remdesivir. The patient remains on oxygen at 8 L per minute nasal cannula. Clinically stable although there has been some interval worsening in her oxygenation. #2. Smoker #3. GERD/reflux #4. Steroid-induced hyperglycemia #5. Vaginal candidiasis Plan: Continue current medical treatment Continues oxygen at 8 L per minute nasal cannula Continue Decadron Continue Lovenox Continue Remdesivir, day #4 D-dimer is mildly elevated LDH is mildly elevated, this will be monitored Monitor for any worsening dyspnea or hypoxia We'll continue to follow Provide an incentive spirometer Repeat inflammatory markers for tomorrow We'll continue to follow
[2021-03-01 11:47] LABS: Glucose,Whole Blood 172 mg/dL (75-99)
[2021-03-01] MEDS: REMDESIVIR 100 MG in SODIUM CHLORIDE 0.9% 250 ML IVPB SCH (12:03)
[2021-03-01 16:30] LABS: Glucose,Whole Blood 300 mg/dL (75-99)
[2021-03-01 19:44] LABS: Glucose,Whole Blood 258 mg/dL (75-99)
[2021-03-01] MEDS: SODIUM CHLORIDE 0.9% 1,000 ML IV SCH (19:50)
[2021-03-02] MEDS: INSULIN ASPART (NovoLOG) 100 UNIT/ML VIAL SQ SCH ×4 (06:47→20:28)
[2021-03-02 06:48] LABS: Glucose,Whole Blood 179 mg/dL (75-99)
--- NOTE | 2021-03-02 08:39 | XR ---
EXAMINATION TYPE: XR chest 1V portable DATE OF EXAM: 03/02/2021 COMPARISON: Chest x-ray 02/25/2021 HISTORY: Covid infection, abnormal chest x-ray TECHNIQUE: Single frontal view of the chest is obtained. FINDINGS: Patchy groundglass densities are present bilaterally similar to prior exam. There is no ev ident pneumothorax or pleural effusion. Elevation right hemidiaphragm is noted. Cardiac mediastinal s ilhouette is stable. Bones are unchanged. There are overlying leads and artifacts. IMPRESSION: Findings consistent with Covid pneumonia
[2021-03-02] MEDS: ENOXAPARIN 40 MG/0.4 ML SYRINGE SQ SCH (08:42)
[2021-03-02] MEDS: CHOLECALCIFEROL 25 MCG (1000 IU) TABLET PO SCH (08:42)
[2021-03-02] MEDS: ASCORBIC ACID 500 MG TAB PO SCH (08:42)
[2021-03-02] MEDS: DEXAMETHASONE SOD PHOSPHATE 10 MG/ML 1 ML VIAL IV SCH (08:42)
[2021-03-02] MEDS: ALBUTEROL HFA INHALER INHALATION SCH ×4 (08:58→20:33)
[2021-03-02 10:28] LABS: Basophils % (A) 0 %; Eosinophils % (A) 0 %; HCT 39.2 % (34.0-46.0); HGB 12.4 gm/dL (11.4-16.0); Lymphocytes # (A) 1.2 k/uL (1.0-4.8); Lymphocytes % (A) 19 %; MCH 26.9 pg (25.0-35.0); MCHC 31.5 g/dL (31.0-37.0); MCV 85.1 fL (80.0-100.0); Monocytes # (A) 0.4 k/uL (0-1.0); Monocytes % (A) 6 %; Neutrophils # (A) 4.7 k/uL (1.3-7.7); Neutrophils % (A) 73 %; Platelet Count 415 k/uL (150-450); RBC 4.61 m/uL (3.80-5.40); RDW 13.9 % (11.5-15.5); WBC 6.5 k/uL (3.8-10.6)
[2021-03-02 11:41] LABS: ALT 25 U/L (4-34); AST 41 U/L (14-36); African American GFR (CKD) >90 (>60 ml/min/1.73 sqM); Albumin 3.6 g/dL (3.5-5.0); Alkaline Phosphatase 99 U/L (38-126); Anion Gap 13 mmol/L; Blood Urea Nitrogen 16 mg/dL (7-17); C Reactive Protein 3.8 mg/dL (<1.0); Calcium 9.2 mg/dL (8.4-10.2); Carbon Dioxide 23 mmol/L (22-30); Chloride 101 mmol/L (98-107); Glucose 224 mg/dL (74-99); LDH 750 U/L (313-618); Non-African American GFR(CKD) >90 (>60 ml/min/1.73 sqM); Potassium 3.9 mmol/L (3.5-5.1); Sodium 137 mmol/L (137-145); Total Bilirubin 0.4 mg/dL (0.2-1.3); Total Protein 6.6 g/dL (6.3-8.2)
--- NOTE | 2021-03-02 11:53 | P.PN ---
Subjective Progress Note Date: 03/02/21 40-year-old female, who apparently began to get sick last Sunday/Sunday. She's been sick for about 6 days or so. The patient was tested for coronavirus, and turned out to be positive. The patient's complaints included shortness of breath, cough, fever, chills, muscle aches, and generally just not feeling well, which has progressed through the last few days. For that reason, she came in to be evaluated. She was seen in the emergency room on February 25. The patient's resting comfortably but, is requiring oxygen therapy. She is on 2-3 L, with saturations of about 92-93%. We thought she was a good candidate for REM. In addition, she should get Lovenox, Decadron, and vitamin C, D3, and zinc. White count 4.3, with a normal hemoglobin, hematocrit, and platelet count. D-dimer was 0.61. Sodium 133, potassium 3.4, chlorides 97, CO2 24, anion gap normal, BUN 8, with a creatinine 0.58. C-reactive protein is 15.5. LDH is 703. Chest x-ray showed new bilateral pulmonary infiltrates. CT angiogram was negative for PE. Diffuse bilateral infiltrates were seen. Other than a hiatal hernia, and occasional acid reflux disease, the patient is otherwise healthy. On 02/27/2021 patient seen in follow-up on selective care unit, she states if she sits still she does not feel any distress however if she walks or exerts herself she starts having coughing attacks, becomes dizzy. Her shortness of breath worsens. She is resting in bed currently, on 5 L of oxygen with pulse ox of 92%, she has been afebrile, in no acute distress, no chest discomfort. CT angiogram was negative for pulmonary embolism, there were diffuse bilateral infiltrates. Patient continues on Remdesivir, day 2 of treatment, she is on dexamethasone 6 mg, Lovenox, and COVID-19 vitamins. In addition she states she developed vaginal yeast infection, and she is requesting something for it. Today's labs have been reviewed, electrolytes and renal profile are unremarkable, disease, d-dimer, and CRP are pending 02/28/2021, the patient is being seen for a follow-up. The patient is doing well on 6 L about 2 by nasal cannula. Her pulse ox is currently ranging around 90-91%. She easily desaturates with movement and activity. Otherwise, no confusion. No altered mentation. No diarrhea. No chest pain. No significant cough and her breathing is nonlabored at this point in time. She is a healthy 40-year-old individual. The angiogram showed no evidence of any pulmonary embolism. The patient diffuse breath and pulmonary infiltrates consistent with COVID-19 related pneumonia and the patient remains on a combination of Decadron and Remdesivir.The labs from today showed a d-dimer of 0.7. The patient's LDH level is 843. Pro-calcitonin level from the time of admission was 0.12. On 03/01/2021, the patient is coming being seen for a follow-up. She is a case of COVID-19 related pneumonia. She had a difficult night yesterday. She had coughing spells. She had some worsening in shortness of breath and hypoxemia and she is currently on 8 L of oxygen by nasal cannula. This morning, she is looking much better. She is much more comfortable and she is able to speak up longer sentences. She remains on a combination of Decadron and she did a dose of 6 mg on a daily basis and addition to Remdesivir day #4 4 and Lovenox 40 mg subcu on a daily basis. In terms of her markers, all of the markers are obt ained from yesterday. No new markers are from today. As mentioned, she is at 8 L. Her pro-calcitonin level was low. She has no specific complaints. No altered mentation. No nausea. No vomiting. No diarrhea. She'll be provided an incentive spirometer. Currently she is at 8 L. 03/02/2021, the patient is feeling better. She feels that she is doing better compared to yesterday. A repeat chest x-ray was done and this was compared to the earlier chest x-ray from 02/25/2021. Findings are essentially stable and there is some patchy bilateral pulmonary infiltrates more so in the lower lobes and to lesser extent in the upper lobes. In terms of her blood work, the patient's d-dimer is at 1.57, and LDH level is dropped down to 750 and her CRP level has dropped down to 3.8. Rest of the electrodes are normal. She is afebrile and her current pulse ox is around 91% on 7 L of oxygen by nasal cannula. The patient is still being treated with a combination of Decadron 6 mg on a daily basis. She is taking her fifth day of Remdesivir and she is also on Lovenox 40 mg subcu on a daily basis. Her pro-calcitonin level was low and the patient has no specific complaints for now. Objective - Vital Signs Vital signs: Vital Signs Temp 98.6 F 03/02/21 08:00 Pulse 71 03/02/21 08:00 Resp 16 03/02/21 08:00 BP 132/73 03/02/21 08:00 Pulse Ox 91 L 03/02/21 08:00 Intake & Output 03/01/21 03/02/21 03/02/21 18:59 06:59 18:59 Intake Total 540 240 Output Total 368 1800 Balance 172 -1560 Weight 139.5 kg Intake: Oral 540 240 Output: Urine 368 1800 Other: Voiding Method Bedside Commode Bedside Commode # Voids 3 - Exam No acute distress, oriented 3. Nasal O2 in place of between 7 L. HEENT examination is grossly unremarkable. Neck supple. Full range of motion. No adenopathy thyromegaly or neck vein distention. Cardiovascular examination reveals regular rhythm rate. S1-S2 normal. No S3 or S4. No discernible murmur noted. Heart rate 100 bpm. Heart sounds are distant. Lungs reveal coarse bilateral inspiratory and expiratory rhonchi. No wheezes. No crackles. Breath sounds are equal bilaterally. Abdomen soft bowel sounds are heard. No masses or tenderness. Extremities are intact. No cyanosis clubbing or edema. Skin is without rash or lesion. Neurologic examination is brief but nonfocal. - Labs CBC & Chem 7: 03/02/21 09:59 03/02/21 09:59 Labs: Abnormal Lab Results - Last 24 Hours (Table) 03/01/21 03/01/21 03/02/21 Range/Units 16:29 19:43 06:46 D-Dimer (<0.60) mg/L FEU Creatinine (0.52-1.04) mg/dL Glucose (74-99) mg/dL POC Glucose (mg/dL) 300 H 258 H 179 H (75-99) mg/dL AST (14-36) U/L Lactate Dehydrogenase (313-618) U/L C-Reactive Protein (<1.0) mg/dL 03/02/21 03/02/21 Range/Units 09:59 09:59 D-Dimer 1.57 H (<0.60) mg/L FEU Creatinine 0.50 L (0.52-1.04) mg/dL Glucose 224 H (74-99) mg/dL POC Glucose (mg/dL) (75-99) mg/dL AST 41 H (14-36) U/L Lactate Dehydrogenase 750 H (313-618) U/L C-Reactive Protein 3.8 H (<1.0) mg/dL Microbiology - Last 24 Hours (Table) 02/25/21 22:24 Blood Culture - Preliminary Blood No Growth after 96 hours 02/25/21 22:05 Blood Culture - Preliminary Blood No Growth after 96 hours Assessment and Plan Plan: #1. Acute hypoxic respiratory failure secondary acute COVID-19 pneumonia, patient was started on Remdesivir on 02/26/2021 in addition to Decadron, and Lovenox. Onset of symptoms was 6 days prior to presentation to the hospital. The patient is currently on a combination of Decadron and Remdesivir. The patient remains on oxygen at 7 L per minute nasal cannula. Clinically stable although there has been some interval worsening in her oxygenation. Patient is on a 50 of Remdesivir. Clinically she is improving. Inflammatory markers are a lso improving. #2. Smoker #3. GERD/reflux #4. Steroid-induced hyperglycemia #5. Vaginal candidiasis Plan: Continue current medical treatment Continues oxygen and drop the flow to 6 L Continue Decadron Continue Lovenox Continue Remdesivir, day #5 D-dimer is mildly elevated, yet stable LDH is mildly elevated, this will be monitored, level is improving Drop the FiO2 down to 6 L per minute Chest x-ray from today was reviewed We'll continue to follow Provide an incentive spirometer Not ready for discharge yet. We'll continue to follow.
[2021-03-02 11:57] LABS: Glucose,Whole Blood 225 mg/dL (75-99)
[2021-03-02] MEDS: REMDESIVIR 100 MG in SODIUM CHLORIDE 0.9% 250 ML IVPB SCH (13:22)
--- NOTE | 2021-03-02 13:33 | P.PN ---
Subjective Progress Note Date: 03/01/21 Principal diagnosis: COVID-19 pneumonia 40-year-old female, who apparently began to get sick last Sunday/Sunday. She's been sick for about 6 days or so. The patient was tested for coronavirus, and turned out to be positive. The patient's complaints included shortness of breath, cough, fever, chills, muscle aches, and generally just not feeling well, which has progressed through the last few days. For that reason, she came in to be evaluated. She was seen in the emergency room on February 25. She is on 2-3 L, with saturations of about 92-93%. We thought she was a good candidate for REM. In addition, she should get Lovenox, Decadron, and vitamin C, D3, and zinc. White count 4.3, with a normal hemoglobin, hematocrit, and platelet count. D- dimer was 0.61. Sodium 133, potassium 3.4, chlorides 97, CO2 24, anion gap normal, BUN 8, with a creatinine 0.58. C-reactive protein is 15.5. LDH is 703. Chest x-ray showed new bilateral pulmonary infiltrates. CT angiogram was negative for PE. Diffuse bilateral infiltrates were seen. 02/27/2021 Patient is seen and evaluated and discussed with nursing staff; reports improved breathing but continues to remain short of breath with activity Vital signs are reviewed with temperature 98.3, pulse 86, respiration 20 and blood pressure 116/56 with O2 saturation of 92% on 5-[address] angiogram was negative for PE but remains bilateral infiltrates consistent with COVID-19 pneumonia Patient continues on Remdesivir, day 2 of treatment, she is on dexamethasone 6 mg, Lovenox, and COVID-19 vitamins; patient has been placed on oral Diflucan for vaginal yeast infection 02/28/2021 patient is seen and evaluated; for follow-up currently on O2 at 6 L per nasal cannula with saturations; ranging between 90-91% patient does desaturate easily withCT angiogram showed no evidence of any pulmonary embolism. The patient diffuse breath and pulmonary infiltrates consistent with COVID-19 related pneumonia and the patient remains on a combination of Decadron and Remdesivir.The labs from today showed a d-dimer of 0.7. The patient's LDH level is 843. Pro-calcitonin level from the time of admission was 0.12. 03/01/2021 the patient is seen and evaluated and discussed with nursing staff. Patient reports episodes of coughing resulting in worsening shortness of breath last night; reports feeling much improved this morning Patient is currently on 8 L of oxygen by nasal cannula; temperature 97.6, pulse 76, respiration 20 and blood pressure 124/68. Continue with current treatment with Decadron 6 mg daily, Remdesivir day #4; Lovenox 40 mg subcu on a daily basis. Pulmonary service on board and recommending to continue with current treatment and continue to monitor inflammatory markers in form of d-dimer, LDH and fe rritin Objective - Vital Signs Vital signs: Vital Signs Temp 97.6 F 03/01/21 08:00 Pulse 76 03/01/21 08:00 Resp 20 03/01/21 08:00 BP 124/68 03/01/21 08:00 Pulse Ox 91 L 03/01/21 08:10 Intake & Output 02/28/21 03/01/21 03/01/21 18:59 06:59 18:59 Intake Total 600 180 Output Total 300 Balance 300 180 Weight 138.5 kg Intake: Oral 600 180 Output: Urine 300 Other: Voiding Method Toilet Bedside Commode Bedside Commode # Voids 2 2 - Exam PHYSICAL EXAMINATION: GENERAL: The patient is alert and oriented x3, not in any acute distress. Well developed, well nourished. HEENT: Pupils are round and equally reacting to light. EOMI. No scleral icterus. No conjunctival pallor. Normocephalic, atraumatic. No pharyngeal erythema. No thyromegaly. CARDIOVASCULAR: S1 and S2 present. No murmurs, rubs, or gallops. PULMONARY: Chest is clear to auscultation, no wheezing or crackles. ABDOMEN: Soft, nontender, nondistended, normoactive bowel sounds. No palpable organomegaly. MUSCULOSKELETAL: No joint swelling or deformity. EXTREMITIES: No cyanosis, clubbing, or pedal edema. NEUROLOGICAL: Gross neurological examination did not reveal any focal deficits. SKIN: No rashes. - Labs CBC & Chem 7: 03/02/21 09:59 03/02/21 09:59 Labs: Abnormal Lab Results - Last 24 Hours (Table) 02/28/21 02/28/21 02/28/21 Range/Units 13:49 16:35 20:06 POC Glucose (mg/dL) 322 H 331 H (75-99) mg/dL Coronavirus (PCR) Detected A (Not Detectd) 03/01/21 03/01/21 Range/Units 06:19 11:45 POC Glucose (mg/dL) 179 H 172 H (75-99) mg/dL Coronavirus (PCR) (Not Detectd) Microbiology - Last 24 Hours (Table) 02/25/21 22:24 Blood Culture - Preliminary Blood No Growth after 72 hours 02/25/21 22:05 Blood Culture - Preliminary Blood No Growth after 72 hours Assessment and Plan Assessment: 1. Acute hypoxemic respiratory failure - Patient remains O2 per nasal cannula; we will plan to titrate as needed 2. COVID-19 bilateral pneumonia - Patient has been placed on REM, Lovenox 40 mg subcu daily, Decadron 6 mg daily along with COVID-19 vitamin cocktail - Patient started on azithromycin 500 mg by mouth daily - Continue with albuterol inhaler 2 puffs 4 times a day when necessary - Monitor Accu-Cheks every before meals and at bedtime with insulin sliding scale 3. Morbid obesity; counseling done 4. GERD; stable DVT prophylaxis; SCDs/subcu Lovenox CODE STATUS; full code
[2021-03-02 17:06] LABS: Glucose,Whole Blood 275 mg/dL (75-99)
[2021-03-02 20:26] LABS: Glucose,Whole Blood 260 mg/dL (75-99)
[2021-03-02] MEDS: SODIUM CHLORIDE 0.9% 1,000 ML IV SCH (20:28)
--- NOTE | 2021-03-02 21:43 | P.PN ---
Subjective Progress Note Date: 03/02/21 Principal diagnosis: COVID-19 pneumonia 40-year-old female, who apparently began to get sick last Sunday/Sunday. She's been sick for about 6 days or so. The patient was tested for coronavirus, and turned out to be positive. The patient's complaints included shortness of breath, cough, fever, chills, muscle aches, and generally just not feeling well, which has progressed through the last few days. For that reason, she came in to be evaluated. She was seen in the emergency room on February 25. She is on 2-3 L, with saturations of about 92-93%. We thought she was a good candidate for REM. In addition, she should get Lovenox, Decadron, and vitamin C, D3, and zinc. White count 4.3, with a normal hemoglobin, hematocrit, and platelet count. D- dimer was 0.61. Sodium 133, potassium 3.4, chlorides 97, CO2 24, anion gap normal, BUN 8, with a creatinine 0.58. C-reactive protein is 15.5. LDH is 703. Chest x-ray showed new bilateral pulmonary infiltrates. CT angiogram was negative for PE. Diffuse bilateral infiltrates were seen. 02/27/2021 Patient is seen and evaluated and discussed with nursing staff; reports improved breathing but continues to remain short of breath with activity Vital signs are reviewed with temperature 98.3, pulse 86, respiration 20 and blood pressure 116/56 with O2 saturation of 92% on 5-[address] angiogram was negative for PE but remains bilateral infiltrates consistent with COVID-19 pneumonia Patient continues on Remdesivir, day 2 of treatment, she is on dexamethasone 6 mg, Lovenox, and COVID-19 vitamins; patient has been placed on oral Diflucan for vaginal yeast infection 02/28/2021 patient is seen and evaluated; for follow-up currently on O2 at 6 L per nasal cannula with saturations; ranging between 90-91% patient does desaturate easily withCT angiogram showed no evidence of any pulmonary embolism. The patient diffuse breath and pulmonary infiltrates consistent with COVID-19 related pneumonia and the patient remains on a combination of Decadron and Remdesivir.The labs from today showed a d-dimer of 0.7. The patient's LDH level is 843. Pro-calcitonin level from the time of admission was 0.12. 03/01/2021 the patient is seen and evaluated and discussed with nursing staff. Patient reports episodes of coughing resulting in worsening shortness of breath last night; reports feeling much improved this morning Patient is currently on 8 L of oxygen by nasal cannula; temperature 97.6, pulse 76, respiration 20 and blood pressure 124/68. Continue with current treatment with Decadron 6 mg daily, Remdesivir day #4; Lovenox 40 mg subcu on a daily basis. Pulmonary service on board and recommending to continue with current treatment and continue to monitor inflammatory markers in form of d-dimer, LDH and fe rritin 03/02/2021 Patient is seen and evaluated at beside in room; was discussed with nursing staff. Patient is feeling much better in comparison to yesterday. Repeat chest Xray was done again in order to compare patient's previous chest x ray. Findings of chest x ray are stable however there seems to be patchy infiltrates bilaterally in the lower lobes. Patient's current d-dimer is 1.57 with her LDH trending downward along with her CRP. Patient is currently afebrile and is in no acute distress. Patient has no complaints nor has there been any major changes or events from the previous day. Patient is currently on a regimen of Decadron, Remdesivir, and Levenox. Objective - Vital Signs Vital signs: Vital Signs Temp 97.7 F 03/02/21 20:00 Pulse 86 03/02/21 20:00 Resp 20 03/02/21 20:00 BP 135/69 03/02/21 20:00 Pulse Ox 92 L 03/02/21 20:00 Intake & Output 03/02/21 03/02/21 03/03/21 06:59 18:59 06:59 Intake Total 240 600 240 Output Total 1800 1200 500 Balance -1560 -600 -260 Weight 139.5 kg Intake: Oral 240 600 240 Output: Urine 1800 1200 500 Other: Voiding Method Bedside Commode Bedside Commode # Voids 3 # Bowel Movements 1 - Exam PHYSICAL EXAMINATION: GENERAL: The patient is alert and oriented x3, not in any acute distress. Well developed, well nourished. HEENT: Pupils are round and equally reacting to light. EOMI. No scleral icterus. No conjunctival pallor. Normocephalic, atraumatic. No pharyngeal erythema. No thyromegaly. CARDIOVASCULAR: S1 and S2 present. No murmurs, rubs, or gallops. PULMONARY: Chest is clear to auscultation, no wheezing or crackles. ABDOMEN: Soft, nontender, nondistended, normoactive bowel sounds. No palpable organomegaly. MUSCULOSKELETAL: No joint swelling or deformity. EXTREMITIES: No cyanosis, clubbing, or pedal edema. NEUROLOGICAL: Gross neurological examination did not reveal any focal deficits. SKIN: No rashes. - Labs CBC & Chem 7: 03/02/21 09:59 03/02/21 09:59 Labs: Abnormal Lab Results - Last 24 Hours (Table) 03/02/21 03/02/21 03/02/21 Range/Units 06:46 09:59 09:59 D-Dimer 1.57 H (<0.60) mg/L FEU Creatinine 0.50 L (0.52-1.04) mg/dL Glucose 224 H (74-99) mg/dL POC Glucose (mg/dL) 179 H (75-99) mg/dL AST 41 H (14-36) U/L Lactate Dehydrogenase 750 H (313-618) U/L C-Reactive Protein 3.8 H (<1.0) mg/dL 03/02/21 03/02/21 03/02/21 Range/Units 11:55 16:44 20:25 D-Dimer (<0.60) mg/L FEU Creatinine (0.52-1.04) mg/dL Glucose (74-99) mg/dL POC Glucose (mg/dL) 225 H 275 H 260 H (75-99) mg/dL AST (14-36) U/L Lactate Dehydrogenase (313-618) U/L C-Reactive Protein (<1.0) mg/dL Microbiology - Last 24 Hours (Table) 02/25/21 22:24 Blood Culture - Preliminary Blood No Growth after 96 hours 02/25/21 22:05 Blood Culture - Preliminary Blood No Growth after 96 hours Assessment and Plan Assessment: 1. Acute hypoxemic respiratory failure - Patient remains O2 per nasal cannula; we will plan to titrate as needed 2. COVID-19 bilateral pneumonia - Patient has been placed on REM, Lovenox 40 mg subcu daily, Decadron 6 mg daily along with COVID-19 vitamin cocktail - Patient started on azithromycin 500 mg by mouth daily - Continue with albuterol inhaler 2 puffs 4 times a day when necessary - Monitor Accu-Cheks every before meals and at bedtime with insulin sliding scale 3. Morbid obesity; counseling done 4. GERD; stable DVT prophylaxis; SCDs/subcu Lovenox CODE STATUS; full code
[2021-03-03] MEDS: INSULIN ASPART (NovoLOG) 100 UNIT/ML VIAL SQ SCH ×2 (06:26→13:36)
[2021-03-03 06:28] LABS: Glucose,Whole Blood 133 mg/dL (75-99)
[2021-03-03 08:07] VITALS: BMI 46.5
[2021-03-03] MEDS: ALBUTEROL HFA INHALER INHALATION SCH ×2 (08:32→11:23)
[2021-03-03 09:42] VITALS: TEMP 97.4
[2021-03-03] MEDS: DEXAMETHASONE SOD PHOSPHATE 10 MG/ML 1 ML VIAL IV SCH (09:43)
[2021-03-03] MEDS: ASCORBIC ACID 500 MG TAB PO SCH (09:43)
[2021-03-03] MEDS: CHOLECALCIFEROL 25 MCG (1000 IU) TABLET PO SCH (09:43)
[2021-03-03] MEDS: ENOXAPARIN 40 MG/0.4 ML SYRINGE SQ SCH (09:43)
[2021-03-03 11:26] LABS: C Reactive Protein 3.1 mg/dL (<1.0)
[2021-03-03 11:59] LABS: Glucose,Whole Blood 202 mg/dL (75-99)
[2021-03-03 13:35] VITALS: BP 124/64; PULSE 96; RESP 16
--- NOTE | 2021-03-03 13:58 | P.PN ---
Subjective Progress Note Date: 03/03/21 40-year-old female, who apparently began to get sick last Sunday/Sunday. She's been sick for about 6 days or so. The patient was tested for coronavirus, and turned out to be positive. The patient's complaints included shortness of breath, cough, fever, chills, muscle aches, and generally just not feeling well, which has progressed through the last few days. For that reason, she came in to be evaluated. She was seen in the emergency room on February 25. The patient's resting comfortably but, is requiring oxygen therapy. She is on 2-3 L, with saturations of about 92-93%. We thought she was a good candidate for REM. In addition, she should get Lovenox, Decadron, and vitamin C, D3, and zinc. White count 4.3, with a normal hemoglobin, hematocrit, and platelet count. D-dimer was 0.61. Sodium 133, potassium 3.4, chlorides 97, CO2 24, anion gap normal, BUN 8, with a creatinine 0.58. C-reactive protein is 15.5. LDH is 703. Chest x-ray showed new bilateral pulmonary infiltrates. CT angiogram was negative for PE. Diffuse bilateral infiltrates were seen. Other than a hiatal hernia, and occasional acid reflux disease, the patient is otherwise healthy. On 02/27/2021 patient seen in follow-up on selective care unit, she states if she sits still she does not feel any distress however if she walks or exerts herself she starts having coughing attacks, becomes dizzy. Her shortness of breath worsens. She is resting in bed currently, on 5 L of oxygen with pulse ox of 92%, she has been afebrile, in no acute distress, no chest discomfort. CT angiogram was negative for pulmonary embolism, there were diffuse bilateral infiltrates. Patient continues on Remdesivir, day 2 of treatment, she is on dexamethasone 6 mg, Lovenox, and COVID-19 vitamins. In addition she states she developed vaginal yeast infection, and she is requesting something for it. Today's labs have been reviewed, electrolytes and renal profile are unremarkable, disease, d-dimer, and CRP are pending 02/28/2021, the patient is being seen for a follow-up. The patient is doing well on 6 L about 2 by nasal cannula. Her pulse ox is currently ranging around 90-91%. She easily desaturates with movement and activity. Otherwise, no confusion. No altered mentation. No diarrhea. No chest pain. No significant cough and her breathing is nonlabored at this point in time. She is a healthy 40-year-old individual. The angiogram showed no evidence of any pulmonary embolism. The patient diffuse breath and pulmonary infiltrates consistent with COVID-19 related pneumonia and the patient remains on a combination of Decadron and Remdesivir.The labs from today showed a d-dimer of 0.7. The patient's LDH level is 843. Pro-calcitonin level from the time of admission was 0.12. On 03/01/2021, the patient is coming being seen for a follow-up. She is a case of COVID-19 related pneumonia. She had a difficult night yesterday. She had coughing spells. She had some worsening in shortness of breath and hypoxemia and she is currently on 8 L of oxygen by nasal cannula. This morning, she is looking much better. She is much more comfortable and she is able to speak up longer sentences. She remains on a combination of Decadron and she did a dose of 6 mg on a daily basis and addition to Remdesivir day #4 4 and Lovenox 40 mg subcu on a daily basis. In terms of her markers, all of the markers are obt ained from yesterday. No new markers are from today. As mentioned, she is at 8 L. Her pro-calcitonin level was low. She has no specific complaints. No altered mentation. No nausea. No vomiting. No diarrhea. She'll be provided an incentive spirometer. Currently she is at 8 L. 03/02/2021, the patient is feeling better. She feels that she is doing better compared to yesterday. A repeat chest x-ray was done and this was compared to the earlier chest x-ray from 02/25/2021. Findings are essentially stable and there is some patchy bilateral pulmonary infiltrates more so in the lower lobes and to lesser extent in the upper lobes. In terms of her blood work, the patient's d-dimer is at 1.57, and LDH level is dropped down to 750 and her CRP level has dropped down to 3.8. Rest of the electrodes are normal. She is afebrile and her current pulse ox is around 91% on 7 L of oxygen by nasal cannula. The patient is still being treated with a combination of Decadron 6 mg on a daily basis. She is taking her fifth day of Remdesivir and she is also on Lovenox 40 mg subcu on a daily basis. Her pro-calcitonin level was low and the patient has no specific complaints for now. 03/03/2021, the patient is doing well. She is currently down to 4 L of oxygen by nasal cannula. She was weaned off yesterday from 7 L. She has completed her Remdesivir and she remains on Decadron 6 mg daily and Lovenox 40 mg subcu daily. Her pro-calcitonin level was low. She is doing well. No specific complaints. D-dimer is at 2.46, her LDH level is 771 and her CRP level is at 3.1. No fever. No chills. No night sweats. No nausea or vomiting. No other issues otherwise for now. Objective - Vital Signs Vital signs: Vital Signs Temp 97.4 F L 03/03/21 09:38 Pulse 96 03/03/21 13:35 Resp 16 03/03/21 13:35 BP 124/64 03/03/21 13:35 Pulse Ox 94 L 03/03/21 13:35 Intake & Output 03/02/21 03/03/21 03/03/21 18:59 06:59 18:59 Intake Total 600 480 358 Output Total 1200 800 Balance -600 -320 358 Weight 139 kg 139 kg Intake: Oral 600 480 358 Output: Urine 1200 800 Other: Voiding Method Bedside Commode Bedside Commode # Voids 1 # Bowel Movements 1 - Exam No acute distress, oriented 3. Nasal O2 in place of between 7 L. HEENT examination is grossly unremarkable. Neck supple. Full range of motion. No adenopathy thyromegaly or neck vein distention. Cardiovascular examination reveals regular rhythm rate. S1-S2 normal. No S3 or S4. No discernible murmur noted. Heart rate 100 bpm. Heart sounds are distan t. Lungs reveal coarse bilateral inspiratory and expiratory rhonchi. No wheezes. No crackles. Breath sounds are equal bilaterally. Abdomen soft bowel sounds are heard. No masses or tenderness. Extremities are intact. No cyanosis clubbing or edema. Skin is without rash or lesion. Neurologic examination is brief but nonfocal. - Labs CBC & Chem 7: 03/02/21 09:59 03/02/21 09:59 Labs: Abnormal Lab Results - Last 24 Hours (Table) 03/02/21 03/02/21 03/03/21 Range/Units 16:44 20:25 06:26 D-Dimer (<0.60) mg/L FEU POC Glucose (mg/dL) 275 H 260 H 133 H (75-99) mg/dL Lactate Dehydrogenase (313-618) U/L C-Reactive Protein (<1.0) mg/dL 03/03/21 03/03/21 03/03/21 Range/Units 09:30 09:30 11:54 D-Dimer 2.46 H (<0.60) mg/L FEU POC Glucose (mg/dL) 202 H (75-99) mg/dL Lactate Dehydrogenase 771 H (313-618) U/L C-Reactive Protein 3.1 H (<1.0) mg/dL Microbiology - Last 24 Hours (Table) 02/25/21 22:24 Blood Culture - Preliminary Blood No Growth after 120 hours 02/25/21 22:05 Blood Culture - Preliminary Blood No Growth after 120 hours Assessment and Plan Plan: #1. Acute hypoxic respiratory failure secondary acute COVID-19 pneumonia, patient was started on Remdesivir on 02/26/2021 in addition to Decadron, and Lovenox. Onset of symptoms was 6 days prior to presentation to the hospital. The patient is currently on a combination of Decadron and Remdesivir. The patient is doing well and the patient has been weaned down to 4 L and I further dropped down to 3 L. She has completed Remdesivir and she is also on Decadron. She is excited about her progress and she wants to go home. I think if possible as long as she takes home OXYGEN WITH HER. #2. Smoker #3. GERD/reflux #4. Steroid-induced hyperglycemia #5. Vaginal candidiasis Plan: Continue current medical treatment Continues oxygen at 3 L per minute nasal cannula Arrange for home O2 Continue Decadron and the patient has to complete a total of 10 day course of D ecadron Consider Xarelto 2.5 milligrams daily for 2 weeks on outpatient basis for prophylaxis Completed course of Remdesivir The patient has a pulse oximeter at home and she'll monitor her oxygenation Possible discharge today if she is able to obtain and home oxygen concentrator and portable tanks.
--- NOTE | 2021-03-07 17:28 | CDI ---
Documentation Clarification Form Date: 03/07/2021 09:16:00 AM From: Benitez Pedersen Admit Date: 02/26/2021 01:20:00 AM Patient Name: Georgette Cordova Visit Number: [id number] Discharge Date: 03/03/2021 03:37:00 PM ATTENTION: The Clinical Documentation Specialists (CDI) and [facility] Coding Staff appreciate your assistance in clarifying documentation. Please respond to the clarification below the line at the bottom and electronically sign. The CDI & [facility] Coding staff will review the response and follow-up if needed. Please note: Queries are made part of the Legal Health Record. If you have any questions, please contact the author of this message via ITS. Dr. Rene Gonzalez The patient presented with the following clinical indicators. Additional clarification regarding the etiology/cause of the clinical indicators is requested. History/Risk Factors: COVID PNA Clinical Indicators: WBC: 4 Lactic acid: Blood cultures: Vitals signs: pulse 111, resp 20 temp 99 Treatment: ID Consult: Antibiotics: IV Bolus: In your professional opinion, please clarify if these findings signify one of the following conditions: [ ] Sepsis POA [ ] Sepsis, Not POA [ ] Sepsis ruled out. COVID only [ ] SIRS, without underlying infectious process [ ] Other, please specify [ ] Unable to determine SIRS Criteria: 2 or more of the following may indicate SIRS -Temperature < 96.8F (36C) or > 101.0F (38.3C) -Heart Rate > 90 bpm -Respiratory Rate > 20 breaths/min or PaCO2 < 32 mmHg -White Blood Cell Count > 12,000 or < 4,000 cells/mm3 or > 10% bands (Template Last Reviewed: June 2020) Sepsis ruled out. COVSCOUT BRENNAN
== END 2021-03-03 15:37 | disposition home or self-care (01) | DRG 177 ==
LOC: EC 21:33 → 3SCARD 02-26 01:20
PROVIDERS: ADMIT Internal Medicine; ATTEND Internal Medicine
PROC: XW033E5 Introduction of Remdesivir Anti-infective into Peripheral Vein, Percutaneous Approach, New Technology Group 5 (ICD-10-PCS; principal; 2021-02-26)
PROC: 3E0333Z Introduction of Anti-inflammatory into Peripheral Vein, Percutaneous Approach (ICD-10-PCS; 2021-02-26)
PROC: 5A0945A Assistance with Respiratory Ventilation, 24-96 Consecutive Hours, High Flow/Velocity Cannula (ICD-10-PCS; 2021-02-27)
DX: U07.1 COVID-19 (principal); J12.82 Pneumonia due to coronavirus disease 2019; J96.01 Acute respiratory failure with hypoxia; B37.3 Candidiasis of vulva and vagina; E66.01 Morbid (severe) obesity due to excess calories; Z71.3 Dietary counseling and surveillance; F17.200 Nicotine dependence, unspecified, uncomplicated; K21.9 Gastro-esophageal reflux disease without esophagitis; K44.9 Diaphragmatic hernia without obstruction or gangrene; T38.0X5A Adverse effect of glucocorticoids and synthetic analogues, initial encounter; R73.9 Hyperglycemia, unspecified; Z79.01 Long term (current) use of anticoagulants; Z79.899 Other long term (current) drug therapy
CPT/HCPCS: 36415; 71045; 71275; 80048; 80053; 82728; 83605; 83615; 83735; 83880; 84145; 84484; 85025; 85379; 85610; 85730; 86140; 87040; 87635; 93005; 94640; 94760; 99285

== ENCOUNTER 2021-03-21 22:46 | Emergency (ER) | payer BC, OTHER ==
[2021-03-21 23:59] LABS: Appearance,Urine Cloudy (Clear); Bilirubin,Urine Negative (Negative); Blood,Urine Trace (Negative); Color,Urine Light Yellow; Glucose,Urine (UA) 1+ (Negative); Ketones,Urine 1+ (Negative); Leukocyte Esterase,Urine Moderate (Negative); Mucus,Urine Rare /hpf; Nitrite,Urine Negative (Negative); Protein,Urine Negative (Negative); RBC,Urine <1 /hpf (0-5); Specific Gravity,Urine 1.006 (1.001-1.035); Squamous Epithelial Cell,Urine 3 /hpf (0-4); Urobilinogen,Urine <2.0 mg/dL (<2.0); WBC,Urine 3 /hpf (0-5)
--- NOTE | 2021-03-22 00:54 | ED ---
Back Pain HPI - General Chief Complaint: Back Pain/Injury Stated Complaint: LT flank pain Time Seen by Provider: 03/22/21 00:36 Source: patient, family Limitations: no limitations - History of Present Illness MD Complaint: back pain Onset/Timin -: minutes(s) Similar Symptoms Previously: No Place: home Radiation: flank Severity: moderate Quality: aching Consistency: constant Improves With: none Worsens With: none Associated Symptoms: denies other symptoms - Related Data Home Medications Medication Instructions Recorded Confirmed Acetaminophen Tab [Tylenol] 1,000 mg PO Q6HR PRN 02/25/21 02/25/21 Ibuprofen [Motrin Ib] 800 mg PO Q8H PRN 02/25/21 02/25/21 Previous Rx's Medication Instructions Recorded Albuterol Inhaler [Ventolin Hfa 2 puff INHALATION RT-QID #1 inh 03/03/21 Inhaler] Ascorbic Acid [Vitamin C] 500 mg PO DAILY tab 03/03/21 Cholecalciferol [Vitamin D3 (25 50 mcg PO DAILY #0 tablet 03/03/21 Mcg = 1000 Iu)] Dexamethasone [Decadron] 6 mg PO DAILY 7 Days #7 tablet 03/03/21 Rivaroxaban [Xarelto] 2.5 mg PO DAILY 14 Days #14 tab 03/03/21 Allergies Allergy/AdvReac Type Severity Reaction Status Date / Time No Known Allergies Allergy Verified 03/21/21 23:34 Review of Systems ROS Statement: Those systems with pertinent positive or pertinent negative responses have been documented in the HPI. ROS Other: All systems not noted in ROS Statement are negative. Constitutional: Denies: fever, chills Respiratory: Denies: cough, dyspnea Cardiovascular: Denies: chest pain, palpitations Gastrointestinal: Reports: as per HPI, abdominal pain (Flank pain). Denies: nausea, vomiting, diarrhea, constipation Genitourinary: Denies: dysuria, hematuria Musculoskeletal: Reports: as per HPI, back pain Skin: Denies: rash Neurological: Denies: headache, weakness Past Medical History Past Medical History: GERD/Reflux Additional Past Medical History / Comment(s): Hiatal hernia History of Any Multi-Drug Resistant Organisms: None Reported Past Surgical History: Section Additional Past Surgical History / Comment(s): section in 2017. Past Anesthesia/Blood Transfusion Reactions: No Reported Reaction Past Psychological History: No Psychological Hx Reported Smoking Status: Never smoker Past Alcohol Use History: None Reported Past Drug Use History: None Reported - Past Family History Mother Family Medical History: No Reported History Additional Family Medical History / Comment(s): Hypothyroidism Father Family Medical History: Hyperlipidemia General Exam Limitations: no limitations General appearance: alert Head exam: Present: atraumatic, normocephalic Eye exam: Present: normal appearance. Absent: scleral icterus, conjunctival injection ENT exam: Present: normal oropharynx Neck exam: Present: normal inspection Respiratory exam: Present: normal lung sounds bilaterally. Absent: respiratory distress, wheezes, rales, rhonchi, stridor Cardiovascular Exam: Present: regular rate, normal rhythm, normal heart sounds. Absent: systolic murmur, diastolic murmur, rubs, gallop GI/Abdominal exam: Present: soft. Absent: distended, tenderness, guarding, rebound, rigid Extremities exam: Present: normal inspection, normal capillary refill. Absent: pedal edema, calf tenderness Back exam: Present: other (There is mild flank tenderness) Neurological exam: Present: alert Skin exam: Present: warm, dry, intact, normal color. Absent: rash Course Vital Signs 03/21/21 03/22/21 03/22/21 23:29 01:10 04:27 Temperature 98.6 F 98.1 F Pulse Rate 103 H 86 84 Respiratory 24 18 18 Rate Blood Pressure 147/86 143/95 142/86 O2 Sat by Pulse 98 96 97 Oximetry Medical Decision Making - Lab Data Result diagrams: 03/22/21 00:59 03/22/21 00:59 Lab Results 03/21/21 03/21/21 03/22/21 Range/Units 23:35 23:35 00:59 WBC 6.7 (3.8-10.6) k/uL RBC 4.65 (3.80-5.40) m/uL Hgb 13.1 (11.4-16.0) gm/dL Hct 38.2 (34.0-46.0) % MCV 82.2 (80.0-100.0) fL MCH 28.1 (25.0-35.0) pg MCHC 34.2 (31.0-37.0) g/dL RDW 15.4 (11.5-15.5) % Plt Count 221 (150-450) k/uL MPV 6.4 Neutrophils % 54 % Lymphocytes % 34 % Monocytes % 5 % Eosinophils % 5 % Basophils % 1 % Neutrophils # 3.6 (1.3-7.7) k/uL Lymphocytes # 2.3 (1.0-4.8) k/uL Monocytes # 0.3 (0-1.0) k/uL Eosinophils # 0.3 (0-0.7) k/uL Basophils # 0.1 (0-0.2) k/uL D-Dimer (<0.60) mg/L FEU Sodium (137-145) mmol/L Potassium (3.5-5.1) mmol/L Chloride (98-107) mmol/L Carbon Dioxide (22-30) mmol/L Anion Gap mmol/L BUN (7-17) mg/dL Creatinine (0.52-1.04) mg/dL Est GFR (CKD-EPI)AfAm (>60 ml/min/1.73 sqM) Est GFR (CKD-EPI)NonAf (>60 ml/min/1.73 sqM) Glucose (74-99) mg/dL POC Glucose (mg/dL) (75-99) mg/dL POC Glu [place] Supervisor ID Calcium (8.4-10.2) mg/dL Total Bilirubin (0.2-1.3) mg/dL AST (14-36) U/L ALT (4-34) U/L Alkaline Phosphatase (38-126) U/L Total Protein (6.3-8.2) g/dL Albumin (3.5-5.0) g/dL Urine Color Light Yellow Urine Appearance Cloudy H (Clear) Urine pH 5.0 (5.0-8.0) Ur Specific [place] 1.006 (1.001-1.035) Urine Protein Negative (Negative) Urine Glucose (UA) 1+ H (Negative) Urine Ketones 1+ H (Negative) Urine Blood Trace H (Negative) Urine Nitrite Negative (Negative) Urine Bilirubin Negative (Negative) Urine Urobilinogen <2.0 (<2.0) mg/dL Ur Leukocyte Esterase Moderate H (Negative) Urine RBC <1 (0-5) /hpf Urine WBC 3 (0-5) /hpf Ur Squamous Epith Cells 3 (0-4) /hpf Urine Mucus Rare H (None) /hpf Urine HCG, Qual Not Detected (Not Detectd) 03/22/21 03/22/21 03/22/21 Range/Units 00:59 00:59 00:59 WBC (3.8-10.6) k/uL RBC (3.80-5.40) m/uL Hgb (11.4-16.0) gm/dL Hct (34.0-46.0) % MCV (80.0-100.0) fL MCH (25.0-35.0) pg MCHC (31.0-37.0) g/dL RDW (11.5-15.5) % Plt Count (150-450) k/uL MPV Neutrophils % % Lymphocytes % % Monocytes % % Eosinophils % % Basophils % % Neutrophils # (1.3-7.7) k/uL Lymphocytes # (1.0-4.8) k/uL Monocytes # (0-1.0) k/uL Eosinophils # (0-0.7) k/uL Basophils # (0-0.2) k/uL D-Dimer 1.18 H (<0.60) mg/L FEU Sodium 133 L (137-145) mmol/L Potassium 3.9 (3.5-5.1) mmol/L Chloride 101 (98-107) mmol/L Carbon Dioxide 19 L (22-30) mmol/L Anion Gap 13 mmol/L BUN 10 (7-17) mg/dL Creatinine 0.44 L (0.52-1.04) mg/dL Est GFR (CKD-EPI)AfAm >90 (>60 ml/min/1.73 sqM) Est GFR (CKD-EPI)NonAf >90 (>60 ml/min/1.73 sqM) Glucose 207 H (74-99) mg/dL POC Glucose (mg/dL) 212 H (75-99) mg/dL POC Glu [place] Supervisor ID Lawler, Bhupendra Calcium 9.9 (8.4-10.2) mg/dL Total Bilirubin 0.4 (0.2-1.3) mg/dL AST 66 H (14-36) U/L ALT 56 H (4-34) U/L Alkaline Phosphatase 119 (38-126) U/L Total Protein 7.4 (6.3-8.2) g/dL Albumin 4.2 (3.5-5.0) g/dL Urine Color Urine Appearance (Clear) Urine pH (5.0-8.0) Ur Specific [place] (1.001-1.035) Urine Protein (Negative) Urine Glucose (UA) (Negative) Urine Ketones (Negative) Urine Blood (Negative) Urine Nitrite (Negative) Urine Bilirubin (Negative) Urine Urobilinogen (<2.0) mg/dL Ur Leukocyte Esterase (Negative) Urine RBC (0-5) /hpf Urine WBC (0-5) /hpf Ur Squamous Epith Cells (0-4) /hpf Urine Mucus (None) /hpf Urine HCG, Qual (Not Detectd) Disposition Clinical Impression: Flank pain, Fatty infiltration of liver Disposition: HOME SELF-CARE Condition: Good Instructions (If sedation given, give patient instructions): Non-Alcoholic Fatty Liver Disease (ED), Flank Pain (ED) Additional Instructions: As we discussed, follow up to have the duplex Doppler study of the right calf if any symptoms recur there. Is patient prescribed a controlled substance at d/c from ED?: No Referrals: Ronak Cabral MD [Primary Care Provider] - 1-2 days
[2021-03-22 01:00] LABS: Glucose,Whole Blood 212 mg/dL (75-99)
[2021-03-22] MEDS ORDERED: MORPHINE SULFATE 4 MG/ML SYRINGE IV STA (01:04)
[2021-03-22] MEDS ORDERED: metroNIDAZOLE-NS PMX 500 MG in SALINE 1 100ML.BAG IVPB STA (01:05)
[2021-03-22 01:12] LABS: Basophils % (A) 1 %; Eosinophils % (A) 5 %; HCT 38.2 % (34.0-46.0); HGB 13.1 gm/dL (11.4-16.0); Lymphocytes % (A) 34 %; MCH 28.1 pg (25.0-35.0); MCHC 34.2 g/dL (31.0-37.0); MCV 82.2 fL (80.0-100.0); Mean Platelet Volume 6.4; Monocytes % (A) 5 %; Neutrophils % (A) 54 %; Platelet Count 221 k/uL (150-450); RBC 4.65 m/uL (3.80-5.40); RDW 15.4 % (11.5-15.5); WBC 6.7 k/uL (3.8-10.6)
[2021-03-22 01:13] LABS: Basophils # (A) 0.1 k/uL (0-0.2); Eosinophils # (A) 0.3 k/uL (0-0.7); Lymphocytes # (A) 2.3 k/uL (1.0-4.8); Monocytes # (A) 0.3 k/uL (0-1.0); Neutrophils # (A) 3.6 k/uL (1.3-7.7)
[2021-03-22 01:18] VITALS: RESP 18
[2021-03-22 01:41] LABS: ALT 56 U/L (4-34); AST 66 U/L (14-36); African American GFR (CKD) >90 (>60 ml/min/1.73 sqM); Albumin 4.2 g/dL (3.5-5.0); Alkaline Phosphatase 119 U/L (38-126); Anion Gap 13 mmol/L; Blood Urea Nitrogen 10 mg/dL (7-17); Calcium 9.9 mg/dL (8.4-10.2); Carbon Dioxide 19 mmol/L (22-30); Chloride 101 mmol/L (98-107); Glucose 207 mg/dL (74-99); Non-African American GFR(CKD) >90 (>60 ml/min/1.73 sqM); Potassium 3.9 mmol/L (3.5-5.1); Sodium 133 mmol/L (137-145); Total Bilirubin 0.4 mg/dL (0.2-1.3); Total Protein 7.4 g/dL (6.3-8.2)
--- NOTE | 2021-03-22 03:37 | CT ---
EXAMINATION TYPE: CT abdomen pelvis wo con DATE OF EXAM: 03/22/2021 COMPARISON: None HISTORY: left flank pain CT DLP: 2003 mGycm Automated exposure control for dose reduction was used. Images obtained from the diaphragm to the floor the pelvis with no contrast. There is some patchy interstitial infiltrates at the lung bases. There is some fatty infiltration of the liver. Spleen is intact. Stomach is intact. There is no pancreatic mass. Gallbladder appears norm al. There is no adrenal mass. Kidneys show normal size and contour. There is no hydronephrosis. Ureters a re not dilated. Bladder distends smoothly. There is no inguinal hernia. Uterus is anteverted. There i s no free fluid in the pelvis. Lumbar vertebra have normal alignment. Posterior elements are intact. Hip joints are intact. The appendix is medial and appears normal. There is no mesenteric edema. There is no ascites or free air. There is no bowel obstruction. The lum bar vertebra have normal alignment. Disc spaces are fairly normal. Posterior elements are intact. The re is no compression fracture. Hip joints are intact. Bony pelvis is intact. IMPRESSION: There is some fatty infiltration of the liver. Hepatomegaly. Liver measures 25 cm. No evidence of natasha al stone or obstruction. I do not see a cause for left flank pain.
--- NOTE | 2021-03-22 03:45 | CT ---
EXAMINATION TYPE: CT chest angio for PE DATE OF EXAM: 03/22/2021 COMPARISON: 02/26/2021 HISTORY: elevated d-dimer. possible PE CT DLP: 1293.5 mGycm Automated exposure control for dose reduction was used. CONTRAST: Performed with IV Contrast, patient injected with 80ml mL of Isovue 370. There are 3-D post processed images. There is patchy bilateral interstitial pulmonary infiltrates in the upper and lower lobes. There is n o mediastinal adenopathy. Thoracic aorta is intact. The ascending aorta measures 3.7 cm. There is no dissection. There is normal contrast opacification of the pulmonary arteries. There are no filling de fects. There is no pleural effusion. There is fatty infiltration of the liver. Liver is enlarged. The thoracic spine is intact. There is no compression fracture. Sternum is intact. The ribs appear in tact. IMPRESSION: There is patchy bilateral interstitial pneumonia which is the same or slightly improved compared to o ld exam. No evidence of pulmonary embolism.
[2021-03-22 04:34] VITALS: BP 142/86; PULSE 84; TEMP 98.1
== END 2021-03-22 04:34 | disposition home or self-care (01) ==
LOC: EC 22:46
DX: R10.9 Unspecified abdominal pain (principal); K76.0 Fatty (change of) liver, not elsewhere classified; M54.9 Dorsalgia, unspecified
CPT/HCPCS: 36415; 93005; 85379; 80053; 85025; 81001; 81025; 71275; 74176; 99284; 96374; J2270; Q9967